=== PATIENT | female | born 1970 | race Caucasian/White ===

== ENCOUNTER 2020-12-09 14:22 | Outpatient (CLI) | payer SELFPAY ==
--- NOTE | 2020-12-09 14:32 | MM_ITS ---
WS: [id number] BILATERAL SCREENING DIGITAL MAMMOGRAM WITH CAD HISTORY: SCREENING COMPARISON: None available. Bilateral CC and MLO views submitted. Computer aided detection analyzed. Breast composition: The breasts are extremely dense, which lowers the sensitivity of mammography. No suspicious masses, microcalcifications or architectural distortion. Benign scattered calcifications. MM/[id number] IMPRESSION: BI-RADS: 2-Benign FOLLOW UP: 1 Year Follow-up
== END 2020-12-09 14:23 | disposition home or self-care (01) ==
LOC: RADSHAW 14:28
PROVIDERS: PCP Physician Assistant; Visit Provider Physician Assistant
DX: Z12.31 Encounter for screening mammogram for malignant neoplasm of breast (principal)
CPT/HCPCS: 77067

== ENCOUNTER → 2022-06-13 11:33 | Outpatient (BNVA) | payer SELFPAY | PROVIDERS: PCP Physician Assistant; Visit Provider Nurse Practitioner Women's Health | DX: N93.9 Abnormal uterine and vaginal bleeding, unspecified (principal) | CPT/HCPCS: 82670; 83001 ==

== ENCOUNTER 2024-03-27 09:51 | Outpatient (CLI) | payer OTHER, SELFPAY ==
--- NOTE | 2024-03-27 10:03 | MM_ITS ---
WS: [id number] BILATERAL 3D TOMOSYNTHESIS DIGITAL DIAGNOSTIC MAMMOGRAPHY WITH CAD CLINICAL INFORMATION: L BREAST TENDERNESS HISTORY: LEFT breast pain COMPARISON: 2020 TECHNIQUE: Bilateral CC, MLO, and ML views. FINDINGS: The breasts are composed of extremely dense tissue, which can limit the detection of small underlying mass lesions. Area of pain in the upper outer LEFT breast. Dense underlying parenchymal tissue in th is area. Ultrasound is pending. RIGHT breast appears unchanged. A few incidental punctate calcifications RIGHT breast. ULTRASOUND BREAST LEFT TECHNIQUE: Ultrasound left breast focused area of concern. CLINICAL INFORMATION: L BREAST TENDERNESS FINDINGS: Ultrasound LEFT breast upper outer quadrant in the area of pain. Dense underlying parenchymal tissue. No cystic or solid lesions. No suspicious lesions to target for biopsy. Recommend return to annual s creening mammography. MM/[id number] IMPRESSION: BI-RADS: 2-Benign FOLLOW UP: 1 Year Follow-up Recommend return to annual screening mammography.
== END 2024-03-27 09:52 | disposition home or self-care (01) ==
LOC: RAD 09:53
PROVIDERS: PCP Physician Assistant; Visit Provider Advanced Practice Midwife
DX: N64.4 Mastodynia (principal); N64.51 Induration of breast; R92.1 Mammographic calcification found on diagnostic imaging of breast; R92.30 Dense breasts, unspecified
CPT/HCPCS: 76642; 77062; G0279

== ENCOUNTER 2025-01-01 03:12 | Inpatient (IN) | payer SELFPAY ==
[2025-01-01] VITALS (24 sets, daily range): BP systolic 92–198; BP diastolic 60–115; PULSE 56–98; RESP 10–25; TEMP 36.4–36.9; O2SAT 89–100; BMI 22.6
--- NOTE | 2025-01-01 03:27 | ECG_ITS ---
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 Measurements Intervals [place] Rate: 59 P: 70 IN: 156 QRS: 51 QRSD: 86 T: -90 QT: 436 QTc: 433 Interpretive Statements SINUS BRADYCARDIA ST DEVIATION AND MODERATE T-WAVE ABNORMALITY, CONSIDER LATERAL ISCHEMIA [-0.1+ mV T-WAVE IN I/aVL/V5/V6] ST DEVIATION AND MODERATE T-WAVE ABNORMALITY, CONSIDER INFERIOR ISCHEMIA [-0.1+ mV T-WAVE IN II/aVF] No previous ECG available for comparison Electronically Signed On 01-06-2025 11:52:09 CDT by Steven Lawrence M.D. [id number] [id number]
--- NOTE | 2025-01-01 03:45 | XRR_ITS ---
PROCEDURE INFORMATION: Exam: XR Chest Exam date and time: 01/01/2025 4:04 AM Age: 54 years old Clinical indication: Pain; Chest pressure; Additional info: Chest pain TECHNIQUE: Imaging protocol: Radiologic exam of the chest. Views: 1 view. COMPARISON: No relevant prior studies available. FINDINGS: Lungs: Unremarkable. No consolidation. Pleural spaces: Unremarkable. No pleural effusion. No pneumothorax. Heart/Mediastinum: Unremarkable. No cardiomegaly. Bones/joints: Bilateral cervical ribs. XR/XR chest 1V portable [id number] IMPRESSION: No acute cardiopulmonary findings.
--- NOTE | 2025-01-01 04:01 | W.ED.CHESTPA ---
HPI - Chest Pain General: Chief Complaint: Chest Pain Stated Complaint: High BP Time Seen by Provider: 01/01/25 04:00 History of Present Illness: 54-year-old female with history of untreated hypertension who presents the emergency room with hypertension and chest discomfort. Said she had some central and right sided chest tightness. Went down her arm. Says she is improved now. She checked her blood pressure at home and it was elevated. On presentation here she is 192/76. No fevers. No cough. No lower extremity swelling. Related Data Home Medications ?Medication ?Instructions ?Recorded ?Confirmed B-complex with vitamin C 1 cap PO DAILY 06/13/22 06/13/22 bupropion HCl 150 mg tablet,12 hr 150 mg PO DAILY 06/13/22 06/13/22 sustained-release (Wellbutrin SR) cholecalciferol (vitamin D3) 10 10 mcg PO DAILY 06/13/22 06/13/22 mcg (400 unit) capsule ferrous sulfate 325 mg (65 mg 325 mg PO DAILY 06/13/22 06/13/22 iron) tablet,delayed release levothyroxine 125 mcg capsule 125 mcg PO DAILY 06/13/22 06/13/22 melatonin 3 mg capsule 3 mg PO DAILY 06/13/22 06/13/22 Allergies Allergy/AdvReac Type Severity Reaction Status Date / Time No Known Allergies Allergy Unverified 06/13/22 10:43 Review of Systems Narrative: Constitutional symptoms: Negative except as documented in HPI. Skin symptoms: Negative except as documented in HPI. Eye symptoms: Negative except as documented in HPI. ENMT symptoms: Negative except as documented in HPI. Respiratory symptoms: Negative except as documented in HPI. Cardiovascular symptoms: Negative except as documented in HPI. Gastrointestinal symptoms: Negative except as documented in HPI. Genitourinary symptoms: Negative except as documented in HPI. Musculoskeletal symptoms: Negative except as documented in HPI. Neurologic symptoms: Negative except as documented in HPI. Psychiatric symptoms: Negative except as documented in HPI. Endocrine symptoms: Negative except as documented in HPI. PFS ED PFSH: Medical History (Updated 01/01/25 @ 05:07 by Junie Blanco MD) No pertinent past medical history neghx: htn,dm,dvt/pe PCP: Qi Tamez Hypothyroid Surgical History (Updated 06/13/22 @ 11:13 by Rashida Reeves APN, MALIKA) Hx of lithotripsy (~2013) jennifer kidneys Family History Father Family history of thyroid problem Denies family history of Colon cancer Ovarian cancer Diabetes Heart disease Hyperlipidemia Breast cancer Hypertension Uterine cancer Stroke Physical Exam Narrative: EXAM NARRATIVE: General: Alert, no acute distress. Skin: Warm, dry. Head: Normocephalic, atraumatic. Neck: Supple, trachea midline. Eye: Extraocular movements are intact. Ears, nose, mouth and throat: mucosa moist. Cardiovascular: Regular, Normal peripheral perfusion. Respiratory: Lungs are clear to auscultation, respirations are non-labored, breath sounds are equal, Symmetrical chest wall expansion. Gastrointestinal: Soft, Nontender, Non distended Musculoskeletal: Normal ROM, no deformity. Neurological: Alert and oriented, No focal neurological deficit observed. Psychiatric: Cooperative, appropriate mood & affect. Course Vital Signs: Vital signs: Vital Signs Temperature 97.6 F 01/01/25 03:15 Pulse Rate 58 L 01/01/25 05:09 Respiratory Rate 16 01/01/25 05:09 Blood Pressure 198/110 01/01/25 05:09 Pulse Oximetry 99 01/01/25 05:09 Oxygen Delivery Me thod Room Air 01/01/25 05:09 MDM - Chest Pain Medical Decision Making Differential diagnosis for patient with chest pain includes but is not limited to and based on the above HPI, review of systems and physical exam: Pneumonia. unstable angina. angina. Acute coronary syndrome / [place]. Pulmonary embolism. Costochondritis / musculoskeletal. Pleurisy. Pericarditis. Esophageal spasm. Pancreatis. Cholecystitis. Orders placed to evaluate differential diagnosis based on the above differential, HPI and physical exam EKG: Time 3:27 AM. Rate 59. Sinus bradycardia. Fairly diffuse ST depression without any elevation, no ectopy, normal UT & QRS intervals, This was reviewed and interpreted by myself the ER physician at 3:35 AM. Lab Review: Laboratory results were reviewed and interpreted by myself the emergency room physician. No leukocytosis. No anemia. No renal failure. Initial troponin is slightly elevated at 26. Consultation: I spoke with Dr. Lawrence with cardiology. He recommends trending troponins. He reviewed EKG. He does not feel this is a STEMI. Chest x-ray: No acute process. No infiltrate. No pneumothorax. This was reviewed and interpreted by myself the emergency room physician. I also reviewed the radiology report. I reviewed the patient's medical record. Reexamination: Patient remained stable. No increased work of breathing. No altered mental status. No focal motor deficits. Patient has been chest pain-free while she has been here. Consultation: I spoke with Dr. Lora who is on-call for the hospitalist service who agrees to admission. Assessment and plan: Chest pain Elevated troponin EKG changes Accelerated hypertension ?Aspirin and hydralazine in the emergency room -I discussed the patient with the hospitalist on-call who is admitting the patient. - Discussed findings and plan with patient. Answered any questions. - All laboratory values were reviewed and interpreted personally by myself, the ER physician - All imaging was reviewed and interpreted personally by myself, the ER physician. - Evaluation and treatment of this problem were appropriate in the emergency setting Lab Data 01/01/25 04:00 01/01/25 04:00 Radiology Impressions Chest X-Ray 01/01/25 03:45 IMPRESSION: No acute cardiopulmonary findings. Laboratory Results WBC 7.34 10^3/uL (3.29-11.43) 01/01/25 04:00 RBC 4.28 10^6/uL (3.85-5.65) 01/01/25 04:00 Hgb 11.20 g/dL (11.27-16.99) L 01/01/25 04:00 Hct 36.8 % (36-47) 01/01/25 04:00 MCV 86.0 fl (85-98) 01/01/25 04:00 MCH 26.2 pg (27-33) L 01/01/25 04:00 MCHC 30.4 g/dL (30-55) 01/01/25 04:00 RDW 15.4 % (12.1-15.1) H 01/01/25 04:00 Plt Count 304 10^3/cmm (157-399) 01/01/25 04:00 MPV 8.5 fL (7.4-10.4) 01/01/25 04:00 Neut % (Auto) 66.8 % 01/01/25 04:00 Lymph % (Auto) 22.5 % 01/01/25 04:00 [place] % (Auto) 6.0 % 01/01/25 04:00 Eos % (Auto) 4.1 % 01/01/25 04:00 Baso % (Auto) 0.5 % 01/01/25 04:00 Neut # (Auto) 4.90 10^3/uL (1.8-7.7) 01/01/25 04:00 Lymph # (Auto) 1.7 10^3/uL (0.8-4.8) 01/01/25 04:00 [place] # (Auto) 0.4 10^3/uL (0.2-0.9) 01/01/25 04:00 Eos # (Auto) 0.3 10^3/uL (0.0-0.8) 01/01/25 04:00 Baso # (Auto) 0.0 10^3/uL (0.0-0.1) 01/01/25 04:00 Nucleated RBC % (auto) 0 % 01/01/25 04:00 Nucleated RBCs # 0.0 /100WBC 01/01/25 04:00 Sodium 143 mmol/L (136-145) 01/01/25 04:00 Potassium 4.0 mmol/L (3.5-5.1) 01/01/25 04:00 Chloride 107 mmol/L (98-107) 01/01/25 04:00 Carbon Dioxide 23 mmol/L (22-29) 01/01/25 04:00 Anion Gap 17.0 (5-19) 01/01/25 04:00 BUN 14 mg/dL (6-20) 01/01/25 04:00 Creatinine 0.9 mg/dL (0.5-0.9) 01/01/25 04:00 GFR Calculation 64.8 mL/min (90-130) L 01/01/25 04:00 Glucose 106 mg/dL (65-115) 01/01/25 04:00 Calculated Osmolality 297 mOsm/kg (285-295) H 01/01/25 04:00 Calcium 9.4 mg/dL (8.5-10.5) 01/01/25 04:00 Total Bilirubin 0.2 mg/dL (0.15-1.2) 01/01/25 04:00 AST 11 U/L (0-32) 01/01/25 04:00 ALT 6 U/L (0-33) 01/01/25 04:00 Alkaline Phosphatase 74 U/L (35-105) 01/01/25 04:00 Troponin T Baseline 26 ng/L (0-10) H 01/01/25 04:00 NT-Pro-B Natriuret Pep 153 pg/mL (0-125) H 01/01/25 04:00 Total Protein 7.3 g/dL (6.6-8.7) 01/01/25 04:00 Albumin 4.4 g/dL (3.5-5.2) 01/01/25 04:00 Globulin 2.9 g/dL (1.3-4.6) 01/01/25 04:00 All radiology interpretation(s) finalized by discharge Discharge Plan Discharge Patient Disposition: Admitted As Inpatient Clinical Impression: Non-ST elevated myocardial infarction, Chest pain, Accelerated hypertension Condition: Stable Coding Level of Care Code ED Gripper 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
[2025-01-01 04:04] LABS: Basophils % 0.5 %; Eosinophils # 0.3 10^3/uL (0.0-0.8); Eosinophils % 4.1 %; Hematocrit 36.8 % (36-47); Lymphocytes # 1.7 10^3/uL (0.8-4.8); Lymphocytes % 22.5 %; Mean Corpuscular HGB Conc 30.4 g/dL (30-55); Mean Corpuscular Hemoglobin 26.2 pg (27-33); Mean Platelet Volume 8.5 fL (7.4-10.4); Monocytes # 0.4 10^3/uL (0.2-0.9); Neutrophils % 66.8 %; Nucleated Red Blood Cells % 0 %; Platelet Count 304 10^3/cmm (157-399); Red Blood Count 4.28 10^6/uL (3.85-5.65); Red Cell Distribution Width 15.4 % (12.1-15.1); White Blood Count 7.34 10^3/uL (3.29-11.43)
[2025-01-01] MEDS: aspirin 81 mg Chew Tablet 324 MG PO (04:18)
[2025-01-01 04:21] LABS: Alanine Aminotransferase 6 U/L (0-33); Albumin Level 4.4 g/dL (3.5-5.2); Alkaline Phosphatase 74 U/L (35-105); Aspartate Amino Transferase 11 U/L (0-32); Chloride 107 mmol/L (98-107); Glucose 106 mg/dL (65-115); Sodium 143 mmol/L (136-145)
[2025-01-01 04:23] LABS: Troponin(5th) Baseline 26 ng/L (0-10)
[2025-01-01 04:46] LABS: Blood Urea Nitrogen 14 mg/dL (6-20); Calcium 9.4 mg/dL (8.5-10.5); Carbon Dioxide 23 mmol/L (22-29); Creatinine Clr Calc Pharmacy 62.5517; Globulin 2.9 g/dL (1.3-4.6); Glomerular Filtration Rate 64.8 mL/min (90-130); NT Pro B Type Natriuretic Pept 153 pg/mL (0-125); Osmolality Calculated 297 mOsm/kg (285-295); Total Bilirubin 0.2 mg/dL (0.15-1.2); Total Protein 7.3 g/dL (6.6-8.7)
--- NOTE | 2025-01-01 05:34 | PM.HP ---
Providers/Chief Complaint Admitting Physician: Isak Lora MD Primary Care Provider: Qi Tamez Chief Complaint: High BP History of Present Illness Simin Donahue is a 54 year old female in good health but with hypertension diagnosed at age 18. She states she was on medicines but then started running with her son who was doing cross-country. Patient began to do half marathons at times but 5K runs frequently. Her blood pressure improved and she got off medications. She states that in the last 3 years she stopped running in the last 2 years she is going through a stressful divorce. 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 Today she had chest tightness and right shoulder pain as well as some leg pain but has associated restless legs. She states that she had tingling into her fingers Dad 79 with musculoskeletal injuries Mom 78 okay Maternal grandma had heart stents in her 60s or 70s Review of Systems Narrative: General no fevers chills night sweats hot flashes. Gained 15 pounds in the last 1 year Cardiovascular heart rate tends to run 60s she has had blood pressures from 130 systolic to 170 untreated for many years Respiratory no shortness of breath, she does have coughing with allergies and sinus drainage all the time GI no nausea vomiting diarrhea she does have constipation no dysuria hematuria Neuro no seizures strokes limb weakness hematologic no history of blood clots Malignancy history negative Medications/Allergies Home Medications ?Medication ?Instructions ?Recorded ?Confirmed ?Last Taken ?Type B-complex with vitamin C 1 cap PO DAILY 06/13/22 06/13/22 Unknown History bupropion HCl 150 mg tablet,12 hr 150 mg PO DAILY 06/13/22 06/13/22 Unknown History sustained-release (Wellbutrin SR) cholecalciferol (vitamin D3) 10 10 mcg PO DAILY 06/13/22 06/13/22 Unknown History mcg (400 unit) capsule ferrous sulfate 325 mg (65 mg 325 mg PO DAILY 06/13/22 06/13/22 Unknown History iron) tablet,delayed release levothyroxine 125 mcg capsule 125 mcg PO DAILY 06/13/22 06/13/22 Unknown History melatonin 3 mg capsule 3 mg PO DAILY 06/13/22 06/13/22 Unknown History Allergies Allergy/AdvReac Type Severity Reaction Status Date / Time No Known Allergies Allergy Unverified 06/13/22 10:43 PFSH Acute PFSH: Medical History (Updated 01/01/25 @ 05:07 by Junie Blanco MD) No pertinent past medical history neghx: htn,dm,dvt/pe PCP: Qi Tamez Hypothyroid Surgical History (Updated 06/13/22 @ 11:13 by Rashida Reeves APN, MALIKA) Hx of lithotripsy (~2013) jennifer kidneys Family History Father Family history of thyroid problem Denies family history of Colon cancer Ovarian cancer Diabetes Heart disease Hyperlipidemia Breast cancer Hypertension Uterine cancer Stroke Social History (Updated 01/01/25 @ 05:47 by Isak Lora MD) Smoking and tobacco/nicotine status: never used tobacco/nicotine Alcohol intake: current Alcohol intake frequency: few times a month Substance/Drug Use: never 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 Vitals/I&O/Wt Last Vital Signs Temp 97.6 F 01/01/25 03:15 Pulse 58 L 01/01/25 05:09 Resp 16 01/01/25 05:09 BP 198/110 01/01/25 05:09 Pulse Ox 99 01/01/25 05:09 O2 Del Method Room Air 01/01/25 05:09 12/31/24 12/31/24 01/01/25 14:59 22:59 06:59 Intake Total 0 / 0 Balance 0 / 0 Weight last 48 hrs Weight 59.874 kg Physical Exam Narrative: General Well-developed slender tall female in no acute cardiopulmonary distress Neck no bruits CV regular rate and rhythm Lungs clear to auscultation bilaterally Abdomen positive bowel sounds soft nontender Calves no tenderness cords pretrip edema Mentation alert and orient x 3 Skin warm and dry Data 01/01/25 04:00 01/01/25 04:00 A&P Assessment and plan (1) Non-ST elevated myocardial infarction: Patient is having possibly demand ischemia versus ischemic coronary artery disease with troponin 26. She is at baseline borderline bradycardic but has a long history of running though she stopped 3 years ago. Will treat blood pressure with losartan and hydralazine. Repeat cardiac enzymes and if rising will have angiogram with Dr. Lawrence. If not rising we will proceed with stress test. Echocardiogram will be ordered (2) Accelerated hypertension: As above patient has not been treating her blood pressure but has quit exercising and blood pressure has become higher as a result we will check lipid panel in the morning (3) Chest pain: Anticipate stress test or angiogram for NSTEMI with inferolateral ischemia seen on EKG PDMP PDMP Reviewed: Not Reviewed Attestations Medical Necessity Statement*: Patient will be admitted to hospital for 2 midnights. Coding Level of Care Code 68291 Diagnoses Non-ST elevated myocardial infarction I21.4 Accelerated hypertension I10 Chest pain R07.9 Time Spent (min) 55
--- NOTE | 2025-01-01 05:41 | ECG_ITS ---
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: : 1970 Requested By: Junie Thomson Order Number: [id number] Berta MD: EMERALD MADRIGAL Measurements Intervals [place] Rate: 57 P: 68 MA: 151 QRS: 23 QRSD: 86 T: -39 QT: 440 QTc: 431 Interpretive Statements SINUS BRADYCARDIA SEPTAL MYOCARDIAL INFARCTION , PROBABLY OLD [40+ ms Q WAVE IN V1/V2] MODERATE T-WAVE ABNORMALITY, CONSIDER LATERAL ISCHEMIA [-0.1+ mV T-WAVE IN I/aVL/V5/V6] MODERATE T-WAVE ABNORMALITY, CONSIDER INFERIOR ISCHEMIA [-0.1+ mV T-WAVE IN II/aVF] Compared to ECG 01/01/2025 03:27:27 Myocardial infarct finding now present T-wave abnormality still present Possible ischemia still present Electronically Signed On 01-07-2025 22:57:31 CDT by EMERALD MADRIGAL [id number] [id number]
[2025-01-01] MEDS: amlodipine 5 mg Tablet 2.5 MG PO (06:14)
[2025-01-01] MEDS: hyDRALAzine 20 mg/mL INJ 1 mL IVP (06:15)
[2025-01-01] MEDS: losartan 50 mg Tablet 25 MG PO (06:15)
[2025-01-01 06:36] LABS: Troponin 5 2HR 146.2 ng/L (0-10); Troponin 5 2HR Delta 120.2 ABS# (0-10)
[2025-01-01] MEDS: atorvastatin 40 mg Tablet 80 MG PO (07:33)
[2025-01-01] MEDS: heparin drip 25,000 UNIT/500 ML PREMIX 17 UNIT IV (07:36)
[2025-01-01 07:44] LABS: Partial Thromboplastin Time 28.6 SECONDS (23.9-36.7)
[2025-01-01] MEDS: b-complex-vitamin c Tablet 1 EACH PO (09:04)
[2025-01-01] MEDS: ferrous sulfate EC 325 mg Tablet PO (09:04)
[2025-01-01] MEDS: buPROPion SR (12 HR) 150 mg Tablet PO (09:04)
--- NOTE | 2025-01-01 09:27 | USCV_ITS ---
Simin Donahue Age: 54 Gender: F : 1970 Exam Date: 01/01/2025 18:40 Ordering Phys: Justin Sylvester MD Technologist: MARLEN Exam Location: [facility] [place] Indication: nstemi s/p cardiac cath BP: 105 / 72 HR: 57 Rhythm: Sinus Technical Quality: Good MEASUREMENTS (Male / Female) Normal Values 2D ECHO LV Diastolic Diameter PLAX 4.0 cm 4.2 - 5.9 / 3.9 - 5.3 cm IVS Diastolic Thickness 1.5 cm 0.6 - 1.0 / 0.6 - 0.9 cm IVS Systolic Thickness 1.8 cm LVPW Diastolic Thickness 1.4 cm 0.6 - 1.0 / 0.6 - 0.9 cm LVPW Systolic Thickness 1.8 cm LVOT Diameter 2.0 cm LV Ejection Fraction 2D Teich 57.1 % LV Ejection Fraction MOD 4C 64.5 % LV Ejection Fraction MOD 2C 64.7 % LV Ejection Fraction 2C AL 67.3 % LA Diameter 2.9 cm Aorta at Sinotubular Diameter 2.8 cm IVC Diameter 1.1 cm M-MODE LA Ao Ratio MM 1.0 AV Cusp Separation MM 1.7 cm DOPPLER AV Peak Velocity 118.0 cm/s LVOT Peak Velocity 74.0 cm/s AV Area Cont Eq vti 1.7 cm squared AV Area Cont Eq pk 1.9 cm squared MV Peak Velocity 93.0 cm/s MV Area PHT 3.4 cm squared Mitral E to A Ratio 1.1 TR Peak Velocity 223.0 cm/s TR Peak Gradient 19.9 mmHg TV Peak E Velocity 46.0 cm/s PV Peak Velocity 70.0 cm/s FINDINGS Left Ventricle Left ventricle is normal in size. LV systolic function is normal with EF of 60-65%. Mild to moderate left ventricular hypertrophy. Grade 2 diastolic dysfunction Right Ventricle Normal in size and function Right Atrium Normal in size Left Atrium Normal in size Mitral Valve Structurally normal mitral valve. Mild mitral regurgitation Aortic Valve Structurally normal aortic valve. No significant stenosis or regurgitation. Tricuspid Valve Insufficient TR jet to calculate RVSP. Pulmonic Valve Trace pulmonic regurgitation. Pericardium Normal Aorta Normal in size IVC Appears to be normal CONCLUSIONS LV systolic function is normal with EF of 60-65% Mild to moderate left ventricular hypertrophy. Grade 2 diastolic dysfunction. Mild mitral regurgitation. Trace pulmonic regurgitation. No comparison studies are available Steven Lawrence MD (Electronically Signed) Final Date: 02 Jan 2025 09:02 S
--- NOTE | 2025-01-01 09:45 | ECG_ITS ---
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: : 1970 Requested By: Junie Thomson Order Number: [id number] Berta MD: EMERALD MADRIGAL Measurements Intervals [place] Rate: 91 P: 65 UT: 150 QRS: 23 QRSD: 82 T: -81 QT: 366 QTc: 450 Interpretive Statements SINUS RHYTHM SEPTAL MYOCARDIAL INFARCTION , PROBABLY OLD [40+ ms Q WAVE IN V1/V2] MODERATE T-WAVE ABNORMALITY, CONSIDER ANTEROLATERAL ISCHEMIA [-0.1+ mV T-WAVE IN V3-V6] MODERATE T-WAVE ABNORMALITY, CONSIDER INFERIOR ISCHEMIA [-0.1+ mV T-WAVE IN II/aVF] Compared to ECG 01/01/2025 05:41:26 Sinus bradycardia no longer present Myocardial infarct finding still present T-wave abnormality still present Possible ischemia still present Electronically Signed On 01-07-2025 22:57:33 CDT by EMERALD MADRIGAL [id number]
[2025-01-01 10:06] LABS: Estmated Average Glucose 105; Hemoglobin A1C 5.3 % (4.0-6.0)
[2025-01-01 10:09] LABS: Free T4 Free Thyroxine 1.18 ng/dL (0.82-1.77); Procalcitonin 0.05 ng/mL (0-0.5); T3 Free 2.1 PG/ML (2.0-4.4)
--- NOTE | 2025-01-01 10:15 | P.CONIM_ITS ---
<Statement entered by Steven Lawrence M.D - 01/03/25 13:38> Patient was evaluated and cared for in conjunction with an advanced practice practitioner.? I personally examined the patient and reviewed the chart and all pertinent data including imaging, telemetry, and laboratory results.? I discussed the patient in detail with the advanced practice practitioner.? Please see? their note for complete consult note, testing results and agreed upon plan of care for the patient. Patient has presented with NSTEMI and uncontrolled hypertension. plan for coronary angigoram with possible PCI. Risks and benefits discussed. ECHO ordered GENERAL: Patient is alert, awake and oriented x3. HEART: Regular S1 and S2 LUNGS: Clear to auscultate bilaterally. CENTRAL NERVOUS SYSTEM: Grossly nonfocal. EXTREMITIES: Lower extremities without edema bilaterally. Providers/Reason For Consult 2 Consulting Physician/Specialty*: Dr Lawrence, cardiology Reason for Consult*: NSTEMI, chest pain Requesting Physician: Justin Sylvester MD Attending Physician: Justin Sylvester MD Primary Care Provider: Qi Tamez History of Present Illness History of Present Illness Simin Donahue is a 54 year old female with past medical history of hypertension, previously on metoprolol which caused some weight gain. Blood pressure improved for a time and she discontinued the medication. Blood pressure has been high lately, she woke up with chest pain early this morning around 4 AM, took her blood pressure and noted it was very high cannot remember the number. The chest pain felt like heaviness in the center of the chest and radiated to the right shoulder and arm. After she arrived at the emergency room she did have vomiting. No shortness of breath, edema, rapid increase in weight, has been fatigued lately but thought that might be a menopausal change. She does not have any previous cardiac history. No previous testing. Troponin series: 26-> 146-> 131. BNP 153. TSH 15- she is on levothyroxine at home 88 mcg daily. EKG shows ST depression with T wave inversion in the inferior and lateral leads, sinus rhythm. Echocardiogram ordered not completed. Review of Systems 2 Const: Denies: fever(s), chills, change in weight, fatigue or diaphoresis Eyes: Denies: change in vision ENMT: Denies: epistaxis Card: Reports: chest pain; Denies: palpitations, irregular heart rhythm, edema, syncope, pre-syncope, dyspnea on exertion, orthopnea or leg pain with exertion Resp: Denies: dyspnea, productive cough or wheezing GI: Denies: nausea, vomiting, hematemesis, hematochezia or melena : Denies: hematuria Musc: Denies: extremity swelling Zak/Lymph: Denies: easy bruising or easy bleeding Medications/Allergies Home Medications ?Medication ?Instructions ?Recorded ?Confirmed ?Last Taken ?Type B-complex with vitamin C 1 cap PO DAILY 06/13/2212/0512/31/24 History bupropion HCl 150 mg tablet,12 hr 150 mg PO DAILY 03/2701/01/25 1 Week Ago History sustained-release (Wellbutrin SR) ~ cholecalciferol (vitamin D3) 10 10 mcg PO DAILY 01/01/25 12/31/24 History mcg (400 unit) capsule melatonin 3 mg capsule 3 mg PO BEDTIME PRN Sleep 01/01/25 Unknown History levothyroxine 88 mcg tablet 88 mcg PO QPM 01/01/2512/31/24 History Allergies Allergy/AdvReac Type Severity Reaction Status Date / Time No Known Allergies Allergy Unverified 06/13/22 10:43 Current Medications Generic Name Dose Route Start Last Admin Trade Name Sandeepq PRN Reason Stop Dose Admin Acetaminophen 650 mg 01/01/25 09:27 01/01/25 10:45 Acetaminophen 325 Mg Tablet PO 650 mg Q6H PRN Administration Mild/Mod Pain Or Temp >/= 101 Bupropion HCl 150 mg 01/01/25 09:00 01/01/25 09:04 Bupropion Sr (12 Hr) 150 Mg Tablet PO 150 mg DAILY GERALDO Administration Ferrous Sulfate 325 mg 01/01/25 09:00 01/01/25 09:04 Ferrous Sulfate Ec 325 Mg Tablet PO 325 mg DAILY GERALDO Administration Heparin Sodium/Sodium Chloride 25,000 unit in 500 mls @ 0 mls/hr 01/01/25 07:15 01/01/25 07:36 Heparin Drip IV 14.2 unit/kg/hr CONT GERALDO 17 mls/hr Protocol Administration Per Protocol Levothyroxine Sodium 125 mcg 01/01/25 09:00 01/01/25 09:06 Levothyroxine 125 Mcg Tablet PO Not Given DAILY GERALDO Losartan Potassium 25 mg 01/01/25 05:10 01/01/25 06:15 Losartan 50 Mg Tablet PO 25 mg DAILY GERALDO Administration Metoprolol Tartrate 25 mg 01/01/25 11:40 01/01/25 12:01 Metoprolol Tartrate 25 Mg Tablet PO 25 mg BID@0900,2100 GERALDO Administration Multivitamins 1 each 01/01/25 09:00 01/01/25 09:04 A-Hfaospt-Ttkmaxf C Tablet PO 1 each DAILY GERALDO Administration Pantoprazole Sodium 40 mg 01/01/25 09:30 01/01/25 10:46 Pantoprazole 40 Mg Sdv IVP 40 mg Q24H GERALDO Administration PFSH Acute 2 PFSH: Medical History No pertinent past medical history neghx: htn,dm,dvt/pe PCP: Qi Tamez Hypothyroid Surgical History Hx of lithotripsy (~2013) jennifer kidneys Family History Father Family history of thyroid problem Denies family history of Colon cancer Ovarian cancer Diabetes Heart disease Hyperlipidemia Breast cancer Hypertension Uterine cancer Stroke Social History Smoking and tobacco/nicotine status: never used tobacco/nicotine Alcohol intake: current Alcohol intake frequency: few times a month Substance/Drug Use: never 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 Vitals/I&O/Wt Last Vital Signs Temp 97.6 F 01/01/25 03:15 Pulse 90 01/01/25 11:03 Resp 15 01/01/25 11:03 BP 134/89 01/01/25 11:03 Pulse Ox 97 01/01/25 11:03 O2 Del Method Room Air 01/01/25 08:56 12/31/24 01/01/25 01/01/25 22:59 06:59 14:59 Intake Total 0 / 0 Balance 0 / 0 Weight last 48 hrs Weight 132 lb Physical Exam 2 Const: COMMON NORMALS: no acute distress and patient oriented x3 GENERAL APPEARANCE: cooperative and comfortable ORIENTATION/CONSCIOUSNESS: Yes awake, Yes oriented to person, Yes oriented to place and Yes oriented to time Chest: COMMONS NORMALS: normal inspection of the chest and normal palpation of entire chest wall CHEST: Yes Symmetrical chest wall rise Resp: COMMON NORMALS: normal respiratory effort, No retractions, No use of accessory muscles and clear to auscultation bilaterally EFFORT & INSPECTION: Yes symmetric chest movement AUSCULTATION: clear to auscultation bilaterally Cardio: COMMON NORMALS: regular rate, regular rhythm, S1 normal heart sound present, S2 normal heart sound present, No gallops present (Cardio), No clicks present (Cardio), No murmurs present (Cardio) and No rub (Cardio) RATE: r egular rate RHYTHM: regular rhythm HEART SOUNDS: S1 normal heart sound present and S2 normal heart sound present PERIPHERAL PULSES: radial pulses present Extremity: COMMON NORMALS: no pedal edema Neuro: COMMON NORMALS: patient oriented x3 and moves all extremities S ENSORIUM/ORIENTATION: Yes oriented to person, Yes oriented to place and Yes oriented to time Data 01/01/25 04:00 01/01/25 04:00 A&P Assessment and plan (1) Non-ST elevated myocardial infarction: (2) Chest pain: (3) Accelerated hypertension: Plan Plan for coronary angiogram today, due to NSTEMI. Continue heparin infusion. Risk and benefits of coronary angiogram discussed with the patient including bleeding and contrast-induced nephropathy, she is in agreement to proceed. Further plan will be devised based on results of imaging. PDMP PDMP Reviewed: Not Reviewed Consult Attestations 2 Medical Necessity Statement: Ischemic workup, NSTEMI Coding Level of Care Code Acute Code for [facility] Diagnoses Non-ST elevated myocardial infarction I21.4 Chest pain R07.9 Accelerated hypertension I10
[2025-01-01 10:38] LABS: Iron 24 ug/dL (37-145); Percent Saturation 6.5 % (20-50); Total Iron Binding Capacity 368 mcg/dl; Unsaturated Iron Binding 344 ug/dL (112-347)
[2025-01-01] MEDS: acetaminophen 325 mg Tablet 650 MG PO ×2 (10:45→17:04)
[2025-01-01] MEDS: pantoprazole 40 mg SDV IVP (10:46)
[2025-01-01 10:54] LABS: Vitamin B12 905 pg/mL (232-1245)
[2025-01-01 10:59] LABS: Troponin 5 6HR 131.9 ng/L (0-10); Troponin 5 6HR Delta 105.9 ng/L (0-12)
--- NOTE | 2025-01-01 11:35 | P.PN_ITS ---
Subjective 2 Subjective: Admitted earlier today morning. Continues to have occasional chest pain. Laying comfortably in bed otherwise. Appreciate vitals. Remains on room air. Seen with family at bedside in CSU. Vitals/I&O/Wt Last Vital Signs Temp 97.6 F 01/01/25 03:15 Pulse 90 01/01/25 11:03 Resp 15 01/01/25 11:03 BP 134/89 01/01/25 11:03 Pulse Ox 97 01/01/25 11:03 O2 Del Method Room Air 01/01/25 08:56 12/31/24 01/01/25 01/01/25 22:59 06:59 14:59 Intake Total 0 / 0 Balance 0 / 0 Weight last 48 hrs Weight 59.874 kg Physical Exam 2 Narrative: General: No acute distress, AO x3 HEENT: PERRLA, pupils bilaterally equal and reactive Chest: Normal vesicular breath sounds, no added sounds, equal good air entry bilaterally CVS: S1-S2 regular, no murmurs, no tachycardia, no gallops, no rubs Abdomen: Soft, nontender, no organomegaly, bowel sounds present Neuro: No focal deficits, no facial deformity, AO x3, power 5/5 in all limbs Data 01/01/25 04:00 01/01/25 04:00 A&P Assessment and plan (1) Non-ST elevated myocardial infarction: Check echocardiogram. Continues to have occasional chest pain. Troponin cycle appreciated. Delta of 120 Continue with heparin drip. Aspirin 81 mg daily, statin 20 mg nightly. Check A1c, lipid panel. Add metoprolol 25 mg twice daily Check urine drug screen. (2) Accelerated hypertension: Goal blood pressure less than 140/90 mmHg. For now continue with metoprolol as above. Added losartan overnight. Uptitrate as per goal blood pressure. (3) Chest pain: Plan Full code. N.p.o. for now. Heparin drip will be sufficient for DVT prophylaxis Protonix for PUD prophylaxis PDMP PDMP Reviewed: Not Reviewed Attestations 2 Medical Necessity Statement*: Requires further hospitalization for management of non-ST elevation KS with active chest pain requiring further cardiac workup with possible angiogram Other Coding Information Prolonged care (total time indicated above or notated here) Managing heparin drip, ordering labs. Discussing cardiac angiogram with family and patient. Diagnoses Non-ST elevated myocardial infarction I21.4 Accelerated hypertension I10 Chest pain R07.9
[2025-01-01] MEDS: metoprolol tartrate 25 mg Tablet PO ×2 (12:01→20:14)
--- NOTE | 2025-01-01 12:07 | PC.NURSE ---
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
--- NOTE | 2025-01-01 12:10 | W.PM.OPSUD ---
Surgery/Procedure H&P Update DATE OF PROCEDURE: January 01, 2025 DATE H&P PERFORMED: 01/01/25 H&P UPDATE INFORMATION: I have reviewed H&P completed within last 30 days, I have examined patient prior to procedure and No changes to prior documentation PREOP DIAGNOSIS: NSTEMI PRIMARY INDICATION FOR PROCEDURE: NSTEMI PLANNED PROCEDURE: Left heart cath with possible percutaneous coronary intervention PATIENT REASSESSED PRIOR TO SEDATION, WITH NO CHANGE NOTED: Yes PHYSICAL EXAM: alert, oriented x 3, clear to auscultation bilaterally and regular rate & rhythm AIRWAY EVAL/ANESTHESIA PLAN: normal airway, ASA III, Local Anesthesia, Risks, benefits & alternatives of sedation and/or procedure discussed and Patient agrees to continue as planned ADDITIONAL INFORMATION: Moderate sedation
[2025-01-01 13:32] LABS: Creatine Phosphokinase 74 U/L (26-192)
--- NOTE | 2025-01-01 17:14 | PC.NURSE ---
Patient is c/o severe headache causing vision problems. She says she has this sometimes just not this bad. She is calling it her migraine aura . Informed Dr Sylvester and received telephone orders for head CT w/o contrast and tramadol as ordered.
[2025-01-01] MEDS: atorvastatin 40 mg Tablet 20 MG PO (20:14)
[2025-01-01] MEDS: MELATONIN 3 MG TABLET PO (20:15)
--- NOTE | 2025-01-01 22:44 | PC.NURSE ---
TR band taken off around 1015. Hemostasis achieved no signs of hematoma. Site is soft with no swelling. Dressing applied and patient educated on restrictions for wrist along with signs to report to nurse.
[2025-01-02] VITALS (10 sets, daily range): BP systolic 115–186; BP diastolic 68–100; PULSE 60–67; RESP 6–28; TEMP 36.7–36.9; O2SAT 94–97
[2025-01-02 00:05] LABS: Add Urine Microscopic? YES; Bacteria Urine 1+ /hpf; Bilirubin Urine Negative (Negative); Blood Urine Negative (Negative); Glucose Urine UA Negative (Normal); Hyaline Casts Urine 0-4 /lpf; Ketones Urine Trace (Negative); Leukocyte Esterase Urine Negative (Negative); Nitrate Urine Negative (Negative); Protein Urine Trace (Negative); Squamous Epithelial Cell Urine 0-5 /hpf (0-5); Urine Appearance Clear (CLEAR); Urine Color Yellow (Yellow)
[2025-01-02 00:06] LABS: Amphetamines Screen Urine Negative (Negative); Barbiturates Screen Urine Negative (Negative); Benzodiazepines Screen Urine Negative (Negative); Cocaine Screen Urine Negative (Negative); Opiate Screen Urine Negative (Negative); PCP Screen Urine Negative (Negative); THC Screen Urine Negative (Negative)
[2025-01-02 00:12] LABS: Urine Creatinine 237 mg/dL (28-217)
[2025-01-02 00:20] LABS: UA Slide Review UA Slide Review Perf
[2025-01-02 03:16] LABS: Basophils # 0.1 10^3/uL (0.0-0.1); Basophils % 0.8 %; Eosinophils # 0.3 10^3/uL (0.0-0.8); Eosinophils % 3.9 %; Hematocrit 34.5 % (36-47); Lymphocytes # 1.6 10^3/uL (0.8-4.8); Mean Corpuscular Hemoglobin 26.7 pg (27-33); Mean Platelet Volume 8.5 fL (7.4-10.4); Monocytes # 0.5 10^3/uL (0.2-0.9); Monocytes % 7.2 %; Neutrophils # 4.04 10^3/uL (1.8-7.7); Neutrophils % 62.9 %; Nucleated Red Blood Cells % 0 %; Platelet Count 297 10^3/cmm (157-399); Red Blood Count 4.01 10^6/uL (3.85-5.65); Red Cell Distribution Width 15.5 % (12.1-15.1); White Blood Count 6.41 10^3/uL (3.29-11.43)
[2025-01-02 03:37] LABS: Alanine Aminotransferase 7 U/L (0-33); Albumin Level 3.8 g/dL (3.5-5.2); Alkaline Phosphatase 67 U/L (35-105); Aspartate Amino Transferase 11 U/L (0-32); Blood Urea Nitrogen 16 mg/dL (6-20); Calcium 9.5 mg/dL (8.5-10.5); Carbon Dioxide 23 mmol/L (22-29); Chloride 110 mmol/L (98-107); Creatinine Clr Calc Pharmacy 56.2965; Globulin 3.1 g/dL (1.3-4.6); Glomerular Filtration Rate 57.4 mL/min (90-130); Glucose 99 mg/dL (65-115); Magnesium 2.1 mg/dL (1.7-2.3); Osmolality Calculated 297 mOsm/kg (285-295); Phosphorus 4.7 mg/dL (2.5-4.5); Sodium 143 mmol/L (136-145); Total Bilirubin 0.2 mg/dL (0.15-1.2); Total Protein 6.9 g/dL (6.6-8.7)
[2025-01-02 03:39] LABS: Chol HDL Ratio 3.21 mg/dL (0.0-4.40); Cholesterol 228 mg/dL (0-200); HDL Cholesterol 71 mg/dL (60-100); LDL Cholesterol Calculated 134 mg/dL (50-129); LDL HDL Ratio 1.89 RATIO (0.00-3.22); Triglycerides 115 mg/dL (0-150)
[2025-01-02 03:43] LABS: Procalcitonin 0.04 ng/mL (0-0.5)
[2025-01-02 05:30] LABS: Folate Level 10.7 ng/mL (4.8-37.3)
--- NOTE | 2025-01-02 07:12 | PC.NURSE ---
Patient c/o agitation and extreme restless this morning. Informed Dr Lawrence and received telephone order for onetime dose of Xanax 0.25mg PO.
[2025-01-02] MEDS: ferrous sulfate EC 325 mg Tablet PO (07:24)
[2025-01-02] MEDS: ALPRAZolam 0.5 mg Tablet 0.25 MG PO ×2 (07:24→10:02)
[2025-01-02] MEDS: buPROPion SR (12 HR) 150 mg Tablet PO (07:24)
[2025-01-02] MEDS: b-complex-vitamin c Tablet 1 EACH PO (07:24)
[2025-01-02] MEDS: aspirin 81 mg EC Tablet PO (07:24)
[2025-01-02] MEDS: losartan 50 mg Tablet 25 MG PO (07:25)
[2025-01-02] MEDS: levothyroxine 125 mcg Tablet PO (07:26)
[2025-01-02] MEDS: pantoprazole 40 mg SDV IVP (07:27)
[2025-01-02] MEDS: metoprolol tartrate 25 mg Tablet PO (07:28)
--- NOTE | 2025-01-02 07:39 | PC.NURSE ---
Patient is very restless and agitated this morning. Wants to go home. I got a onetime order from Dr Lawrence for xanax 0.25mg PO. Her BP is elavated this morning. AM meds have been given. Informed Dr Sylvester.
--- NOTE | 2025-01-02 08:23 | P.DS_ITS ---
Discharge Providers Date of Admission: 01/01/25 05:28 Date of Discharge: January 02, 2025 Attending Provider at Admission: Isak Lora MD Attending Provider at Discharge: Justin Sylvester MD Consults: Cardiology: Dr. Lawrence Primary Care Provider: Qi Tamez Diagnoses at Discharge Discharge Diagnosis (1) Non-ST elevated myocardial infarction: Status: Acute (2) Chest pain: Status: Acute (3) Accelerated hypertension: Status: Acute Reason for Visit Reason for Visit: High BP Brief History: Simin Donahue is a 54 year old female in good health but with hypertension diagnosed at age 18. She states she was on medicines but then started running with her son who was doing cross-country. Patient began to do half marathons at times but 5K runs frequently. Her blood pressure improved and she got off medications. She states that in the last 3 years she stopped running in the last 2 years she is going through a stressful divorce. 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 Today she had chest tightness and right shoulder pain as well as some leg pain but has associated restless legs. She st ates that she had tingling into her fingers. Dad 79 with musculoskeletal injuries Mom 78 okay Maternal grandma had heart stents in her 60s or 70s Hospital Course Hospital Course Patient was admitted to the hospital further evaluation and management of chest pain with concerns for non-ST elevation MA because of delta troponins. During hospitalization she was found to have elevated blood pressures and severe anxiety. Her antihypertensives were adjusted. 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 It is believed her chest pain and elevated troponin is most likely in setting of type II MA from elevated blood pressures. Echocardiogram was done which showed a normal EF with mild to moderate LVH and grade 2 diastolic dysfunction. During hospitalization she underwent CT head which was consistent with a chronic basilar infarct. Her antihypertensives were adjusted. Patient was counseled in detail about medication changes and lifestyle modifications. She has been discharged in hemodynamically stable condition on oral metoprolol 25 mg twice daily and losartan 50 mg daily along with aspirin and statin. She is also given amlodipine 5 mg daily as needed for a systolic blood pressure of more than 150 mmHg. She is been discharged hemodynamically stable condition advised to follow-up with a primary care provider within next 2 weeks with her blood pressure diary for further adjustment of antihypertensives and with cardiology team in 2 weeks as well. Physical Exam Narrative: General: No acute distress, AO x3 HEENT: PERRLA, pupils bilaterally equal and reactive Chest: Normal vesicular breath sounds, no added sounds, equal good air entry bilaterally CVS: S1-S2 regular, no murmurs, no tachycardia, no gallops, no rubs Abdomen: Soft, nontender, no organomegaly, bowel sounds present Neuro: No focal deficits, no facial deformity, AO x3, power 5/5 in all limbs Discharge Data Studies Completed and Pending Completed Studies During Hospitalization Category Date Time Status XR chest 1V portable [id number] Stat Exams 01/01/25 03:45 Completed Pending at discharge Category Date Time Status CT head wo con* [id number] Routine Cat Scan 01/02/25 17:10 Taken 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 echo complete* [id number] Routine Ultrasound 01/01/25 09:27 Taken Radiology Impressions Chest X-Ray 01/01/25 03:45 IMPRESSION: No acute cardiopulmonary findings. Echocardiogram: CONCLUSIONS LV systolic function is normal with EF of 60-65% Mild to moderate left ventricular hypertrophy. Grade 2 diastolic dysfunction. Mild mitral regurgitation. Trace pulmonic regurgitation. No comparison studies are available Steven Lawrence MD (Electronically Signed) Final Date: 02 Jan 2025 09:02 CT head: CT/CT head wo con* [id number] IMPRESSION: Indeterminate hemispheric white matter disease, chronic basal ganglia infarct. Please correlate clinically, suggest MRI of the brain with and without contrast to further assess. Laboratory Results WBC 6.41 10^3/uL (3.29-11.43) 01/02/25 02:58 RBC 4.01 10^6/uL (3.85-5.65) 01/02/25 02:58 Hgb 10.70 g/dL (11.27-16.99) L 01/02/25 02:58 Hct 34.5 % (36-47) L 01/02/25 02:58 MCV 86.0 fl (85-98) 01/02/25 02:58 MCH 26.7 pg (27-33) L 01/02/25 02:58 MCHC 31.0 g/dL (30-55) 01/02/25 02:58 RDW 15.5 % (12.1-15.1) H 01/02/25 02:58 Plt Count 297 10^3/cmm (157-399) 01/02/25 02:58 MPV 8.5 fL (7.4-10.4) 01/02/25 02:58 Neut % (Auto) 62.9 % 01/02/25 02:58 Lymph % (Auto) 25.0 % 01/02/25 02:58 [place] % (Auto) 7.2 % 01/02/25 02:58 Eos % (Auto) 3.9 % 01/02/25 02:58 Baso % (Auto) 0.8 % 01/02/25 02:58 Neut # (Auto) 4.04 10^3/uL (1.8-7.7) 01/02/25 02:58 Lymph # (Auto) 1.6 10^3/uL (0.8-4.8) 01/02/25 02:58 [place] # (Auto) 0.5 10^3/uL (0.2-0.9) 01/02/25 02:58 Eos # (Auto) 0.3 10^3/uL (0.0-0.8) 01/02/25 02:58 Baso # (Auto) 0.1 10^3/uL (0.0-0.1) 01/02/25 02:58 Nucleated RBC % (auto) 0 % 01/02/25 02:58 Nucleated RBCs # 0.0 /100WBC 01/02/25 02:58 APTT 28.6 SECONDS (23.9-36.7) 01/01/25 04:08 Sodium 143 mmol/L (136-145) 01/02/25 02:58 Potassium 4.0 mmol/L (3.5-5.1) 01/02/25 02:58 Chloride 110 mmol/L (98-107) H 01/02/25 02:58 Carbon Dioxide 23 mmol/L (22-29) 01/02/25 02:58 Anion Gap 14.0 (5-19) 01/02/25 02:58 BUN 16 mg/dL (6-20) 01/02/25 02:58 Creatinine 1.0 mg/dL (0.5-0.9) H 01/02/25 02:58 GFR Calculation 57.4 mL/min (90-130) L 01/02/25 02:58 Glucose 99 mg/dL (65-115) 01/02/25 02:58 Estimat Average Glucose 105 01/01/25 04:00 Hemoglobin A1c 5.3 % (4.0-6.0) 01/01/25 04:00 Calculated Osmolality 297 mOsm/kg (285-295) H 01/02/25 02:58 Calcium 9.5 mg/dL (8.5-10.5) 01/02/25 02:58 Phosphorus 4.7 mg/dL (2.5-4.5) H 01/02/25 02:58 Magnesium 2.1 mg/dL (1.7-2.3) 01/02/25 02:58 Iron 24 ug/dL (37-145) L 01/01/25 06:02 TIBC 368 mcg/dl 01/01/25 06:02 % Saturation 6.5 % (20-50) L 01/01/25 06:02 Unsat Iron Binding 344 ug/dL (112-347) 01/01/25 06:02 Total Bilirubin 0.2 mg/dL (0.15-1.2) 01/02/25 02:58 AST 11 U/L (0-32) 01/02/25 02:58 ALT 7 U/L (0-33) 01/02/25 02:58 Alkaline Phosphatase 67 U/L (35-105) 01/02/25 02:58 Creatine Kinase 74 U/L (26-192) 01/01/25 06:02 Troponin T Baseline 26 ng/L (0-10) H 01/01/25 04:00 Troponin T 120 Minute 146.2 ng/L (0-10) H 01/01/25 06:02 Delta Troponin T 120.2 ABS# (0-10) H* 01/01/25 06:02 Troponin T Hi Sens 6Hr 131.9 ng/L (0-10) H 01/01/25 10:16 Troponin T Hi Sens 6Hr Delta 105.9 ng/L (0-12) H* 01/01/25 10:16 C-Reactive Protein 3.0 mg/L (0.0-4.9) 01/01/25 06:02 NT-Pro-B Natriuret Pep 153 pg/mL (0-125) H 01/01/25 04:00 Total Protein 6.9 g/dL (6.6-8.7) 01/02/25 02:58 Albumin 3.8 g/dL (3.5-5.2) 01/02/25 02:58 Globulin 3.1 g/dL (1.3-4.6) 01/02/25 02:58 Triglycerides 115 mg/dL (0-150) 01/02/25 02:58 Cholesterol 228 mg/dL (0-200) H 01/02/25 02:58 LDL Cholesterol, Calc 134 mg/dL (50-129) H 01/02/25 02:58 HDL Cholesterol 71 mg/dL (60-100) 01/02/25 02:58 LDL/HDL Ratio 1.89 RATIO (0.00-3.22) 01/02/25 02:58 Cholesterol/HDL Ratio 3.21 mg/dL (0.0-4.40) 01/02/25 02:58 Vitamin B12 905 pg/mL (232-1245) 01/01/25 06:02 Folate 10.7 ng/mL (4.8-37.3) 01/02/25 02:58 Procalcitonin 0.04 ng/mL (0-0.5) 01/02/25 02:58 TSH 15.20 uIU/mL (0.27-4.20) H 01/01/25 04:00 Free T4 1.18 ng/dL (0.82-1.77) 01/01/25 06:02 Free T3 2.1 PG/ML (2.0-4.4) 01/01/25 06:02 Urine Color Yellow (Yellow) 01/01/25 23:47 Urine Appearance Clear (CLEAR) 01/01/25 23:47 Urine pH 6.0 (5-7) 01/01/25 23:47 Ur Specific [place] 1.060 (1.005-1.030) H 01/01/25 23:47 Urine Protein Trace (Negative) A 01/01/25 23:47 Urine Glucose (UA) Negative (Normal) 01/01/25 23:47 Urine Ketones Trace (Negative) 01/01/25 23:47 Urine Blood Negative (Negative) 01/01/25 23:47 Urine Nitrate Negative (Negative) 01/01/25 23:47 Urine Bilirubin Negative (Negative) 01/01/25 23:47 Urine Urobilinogen 1.0 mg/dL (Negative) 01/01/25 23:47 Ur Leukocyte Esterase Negative (Negative) 01/01/25 23:47 Urine RBC 6-10 /hpf (0-2) 01/01/25 23:47 Urine WBC 6-10 /hpf (0-5) 01/01/25 23:47 Ur Squamous Epith Cells 0-5 /hpf (0-5) 01/01/25 23:47 Calcium Oxalate Crystal 5-10 /hpf H 01/01/25 23:47 Amorphous Sediment Not Reportable 01/01/25 23:47 Urine Bacteria 1+ /hpf (NONE) H 01/01/25 23:47 Hyaline Casts 0-4 /lpf H 01/01/25 23:47 Urine Creatinine 237 mg/dL (28-217) H 01/01/25 23:47 Urine Opiates Screen Negative ng/mL (Negative) 01/01/25 23:47 Ur Barbiturates Screen Negative ng/mL (Negative) 01/01/25 23:47 Ur Phencyclidine Scrn Negative ng/mL (Negative) 01/01/25 23:47 Ur Amphetamines Screen Negative ng/mL (Negative) 01/01/25 23:47 U Benzodiazepines Scrn Negative ng/mL (Negative) 01/01/25 23:47 Urine Cocaine Screen Negative ng/mL (Negative) 01/01/25 23:47 U Marijuana (THC) Screen Negative ng/mL (Negative) 01/01/25 23:47 Vitals Last Vital Signs Temp 98.5 F 01/02/25 04:00 Pulse 67 01/02/25 04:00 Resp 18 01/02/25 04:00 BP 186/100 01/02/25 07:25 Pulse Ox 94 01/02/25 04:00 O2 Del Method Room Air 01/02/25 04:00 Discharge Plan Discharge Patient Disposition: Home Condition: Stable Prescriptions: New losartan 50 mg Tablet 25 mg PO DAILY 30 Days Qty: 30 0RF atorvastatin 40 mg Tablet 20 mg PO BEDTIME 30 Days Qty: 30 0RF aspirin 81 mg Tablet,Delayed Release (Dr/Ec) 81 mg PO DAILY 30 Days Qty: 30 0RF ferrous sulfate 325 mg (65 mg iron) Tablet,Delayed Release (Dr/Ec) 325 mg PO DAILY Qty: 30 0RF metoprolol tartrate 25 mg Tablet 25 mg PO BID@0900,2100 30 Days Qty: 60 0RF amlodipine 5 mg tablet 5 mg PO DAILY PRN (Reason: SBP more than 150 mmhg) Qty: 10 0RF levothyroxine 100 mcg capsule 100 mcg PO DAILY Qty: 30 0RF Continued bupropion HCl [Wellbutrin SR] 150 mg tablet sustained-release 12 hr 150 mg PO DAILY cholecalciferol (vitamin D3) 10 mcg (400 unit) capsule 10 mcg PO DAILY B-complex with vitamin C Capsule 1 cap PO DAILY melatonin 3 mg capsule 3 mg PO BEDTIME PRN (Reason: Sleep) Discontinued levothyroxine 88 mcg tablet 88 mcg PO QPM Discharge Orders: Discharge Order (Routine); Ordered 01/02/25 Ordered By: Justin Sylvester Referrals: Tamara Martell FNP [Nurse Practitioner, Cardiology] - 01/08/25 4:00 pm Qi Tamez PA [Primary Care Provider, [facility]] - 01/08/25 10:40 am Discharge Diet: Cardiac Discharge Activity: Resume usual activity and Increase activity as tolerated Patient Instructions: Metoprolol (By mouth), Levothyroxine (By mouth), Aspirin (By mouth), Amlodipine (By mouth), Losartan (By mouth), Atorvastatin (By mouth), Chest Pain (DC), Chronic Hypertension (DC), Opioid Safety Activity Restrictions/Additional Instructions: Please check your blood pressure daily at home and maintain a blood pressure diary. Goal blood pressure is between 100-140 systolics. Follow-up with a primary care provider within next 2 weeks with blood pressure diary for further adjustment antihypertensives. Dose of levothyroxine has been increased. You should have a repeat thyroid panel done in 4 weeks. Discharge Attestations Time Spent in Discharge Care*: greater than 30 min Specific Discharge Activities: educating patient, educating and/or supporting family/caregiver, discussing with pcp/other providers, discussing with employment evaluator/case manager/social workers/dc planners, documenting/other paperwork and evaluating patient/reviewing data Status at Discharge: Cognitive status at discharge: cognitively intact , Behavioral status at discharge: cooperative , Functional status at discharge: independent ambulation , Overall status at discharge: patient is back to baseline Quality Metrics Clinical Quality Measures [ No reported AMI, CVA or VTE this stay] Coding Level of Care Code 79416 Total time (in minutes) for Discharge: 65 Diagnoses Non-ST elevated myocardial infarction I21.4 Chest pain R07.9 Accelerated hypertension I10
--- NOTE | 2025-01-02 08:35 | P.PN_ITS ---
<Statement entered by Steven Lawrence M.D - 01/03/25 14:19> Patient was evaluated and cared for in conjunction with an advanced practice practitioner.? I personally examined the patient and reviewed the chart and all pertinent data including imaging, telemetry, and laboratory results.? I discussed the patient in detail with the advanced practice practitioner.? Please see? their note for complete progress note, testing results and agreed upon plan of care for the patient. Patient's blood pressure is uncontrolled. Coronary angiogram showed moderate distal OM lesion however otherwise nonobstructive CAD. Uptitrate antihypertensive medications. Outpatient cardiology follow-up. Echo shows normal LV systolic function with grade 2 diastolic dysfunction. GENERAL: Patient is alert, awake and oriented x3. HEART: Regular S1 and S2 LUNGS: Clear to auscultate bilaterally. CENTRAL NERVOUS SYSTEM: Grossly nonfocal. EXTREMITIES: Lower extremities without edema bilaterally. Subjective 2 Subjective: She has done well from a cardiovascular perspective, has not had any chest pain or shortness of breath. She did get agitated this morning and wants to go home., Blood pressure spiked earlier this morning during that episode of agitation, now down to 145 systolic. Will increase losartan to 75 mg daily, giving an additional 50 mg now. Will observe response and recommend discharge home if blood pressure is improved. No complications with right radial cath site. Vitals/I&O/Wt Last Vital Signs Temp 98.0 F 01/02/25 08:00 Pulse 60 01/02/25 08:00 Resp 18 01/02/25 04:00 BP 149/79 01/02/25 08:53 Pulse Ox 97 01/02/25 08:00 O2 Del Method Room Air 01/02/25 08:00 01/01/25 01/02/25 01/02/25 22:59 06:59 14:59 Intake Total 480 / 778.033 200 / 778.033 Balance 480 / 778.033 200 / 778.033 Weight last 48 hrs Weight 130 lb 9.6 oz Weight 130 lb 6.4 oz Weight 132 lb Physical Exam 2 Const: COMMON NORMALS: no acute distress and patient oriented x3 GENERAL APPEARANCE: cooperative ORIENTATION/CONSCIOUSNESS: Yes awake, Yes oriented to person, Yes oriented to place and Yes oriented to time Chest: COMMONS NORMALS: normal inspection of the chest and normal palpation of entire chest wall CHEST: Yes Symmetrical chest wall rise Resp: COMMON NORMALS: normal respiratory effort, No retractions, No use of accessory muscles and clear to auscultation bilaterally AUSCULTATION: clear to auscultation bilaterally Cardio: COMMON NORMALS: regular rate, regular rhythm, S1 normal heart sound present, S2 normal heart sound present, No gallops present (Cardio), No clicks present (Cardio), No murmurs present (Cardio) and No rub (Cardio) RATE: r egular rate RHYTHM: regular rhythm HEART SOUNDS: S1 normal heart sound present and S2 normal heart sound present PERIPHERAL PULSES: radial pulses present positive right 2+ and femoral pulses present positive right 2+ Neuro: COMMON NORMALS: patient oriented x3 and moves all extremities S ENSORIUM/ORIENTATION: Yes oriented to person, Yes oriented to place and Yes oriented to time Skin: WOUNDS: Yes surgical site (no hematoma palpable) Details: no odor Data 01/02/25 02:58 01/02/25 02:58 A&P Assessment and plan (1) Non-ST elevated myocardial infarction: (2) Accelerated hypertension: (3) Chest pain: Plan Echocardiogram from yesterday shows LVEF 60 to 65%, mild to moderate LVH and grade 2 diastolic dysfunction with mild mitral regurgitation. She should follow-up with cardiology clinic in 2 weeks. Will request she maintain a blood pressure log for adjustment of medications. PDMP PDMP Reviewed: Not Reviewed Attestations 2 Medical Necessity Statement*: Plan for discharge today Coding Level of Care Code Acute Code for Chg Fwd Diagnoses Non-ST elevated myocardial infarction I21.4 Accelerated hypertension I10 Chest pain R07.9
[2025-01-02] MEDS: losartan 50 mg Tablet PO (08:53)
[2025-01-02] MEDS: ondansetron 2 mg/ML SDV 2 mL 4 MG IVP (09:50)
--- NOTE | 2025-01-02 11:40 | PC.NURSE ---
Patient discharged to home. Instruction provided regarding follow up appt, new medications with changes and site care with restrictions. Patient verbalized complete understanding. Patient received meds to bed prior to discharge. Patient taken by wheelchair to private vehicle with family member at side. Patient denies pain or needs presently. No distress observed.
--- NOTE | 2025-01-02 17:10 | CTR_ITS ---
PROCEDURE INFORMATION: Exam: CT Head Without Contrast Exam date and time: 01/02/2025 7:39 AM Age: 54 years old Clinical indication: Headache not specified; Pain on RT side of face, eye feels strained; Additional info: Severe headache TECHNIQUE: Imaging protocol: Computed tomography of the head without contrast. Radiation optimization: All CT scans at this facility use at least one of these dose optimization techniques: automated exposure control; mA and/or kV adjustment per patient size (includes targeted exams where dose is matched to clinical indication); or iterative reconstruction. COMPARISON: No relevant prior studies available. RADIATION DOSE METRICS: Total DLP (mGy-cm): 1044.39 FINDINGS: Brain: There is no mass effect, midline shift, acute hemorrhage, extra-axial fluid collection or acute lobar infarct. Patchy moderate hemispheric white matter disease is noted, indeterminate, possibly representing microvascular ischemic change. 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 Cerebral ventricles: No ventriculomegaly. Paranasal sinuses: Visualized sinuses are unremarkable. No fluid levels. Mastoid air cells: Visualized mastoid air cells are well aerated. Bones: Unremarkable. No acute fracture. Soft tissues: Unremarkable. CT/CT head wo con* [id number] IMPRESSION: Indeterminate hemispheric white matter disease, chronic basal ganglia infarct. Please correlate clinically, suggest MRI of the brain with and without contrast to further assess.
== END 2025-01-02 11:37 | disposition home or self-care (01) | DRG 282 ==
LOC: ER 05:13 → ER IP 05:55 → CSU 09:46
PROVIDERS: Internal Medicine; Admitting Provider Internal Medicine; Emergency Provider Emergency Medicine; PCP Physician Assistant; Visit Provider Student in an Organized Health Care Education/Training Program
PROC: B211YZZ Fluoroscopy of Multiple Coronary Arteries using Other Contrast (ICD-10-PCS; principal; 2025-01-01 12:00)
DX: I10 Essential (primary) hypertension (principal); I21.A1 Myocardial infarction type 2; I25.10 Atherosclerotic heart disease of native coronary artery without angina pectoris; R45.1 Restlessness and agitation; I34.0 Nonrheumatic mitral (valve) insufficiency; G25.81 Restless legs syndrome; E03.9 Hypothyroidism, unspecified; K59.00 Constipation, unspecified; Z79.82 Long term (current) use of aspirin; Z86.73 Personal history of transient ischemic attack (TIA), and cerebral infarction without residual deficits; Z87.442 Personal history of urinary calculi; Z82.49 Family history of ischemic heart disease and other diseases of the circulatory system
CPT/HCPCS: 36415; 70450; 71045; 80053; 80061; 80306; 81001; 82550; 82570; 82607; 82746; 83036; 83540; 83550; 83735; 83880; 84100; 84145; 84439; 84443; 84481; 84484; 85025; 85730; 86140; 93005; 93306; 93458; 94664; 96365; 96366; 96367; 96375; 96376; 99152; 99153; 99291; C1769; C1887; C1894; J0360; J1200; J1644; J2250; J2405; J2470; J3010; J3490; J7030; J9999; Q9967

== ENCOUNTER 2025-01-06 09:40 | Inpatient (IN) | payer SELFPAY ==
[2025-01-06] VITALS (43 sets, daily range): BP systolic 107–182; BP diastolic 65–103; PULSE 51–74; RESP 10–24; TEMP 36.6–36.8; O2SAT 93–100; BMI 23.1
--- NOTE | 2025-01-06 09:47 | ECG_ITS ---
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 Measurements Intervals [place] Rate: 58 P: 56 VT: 146 QRS: 19 QRSD: 93 T: 103 QT: 421 QTc: 415 Interpretive Statements SINUS BRADYCARDIA WITH OCCASIONAL SUPRAVENTRICULAR PREMATURE COMPLEXES ST ELEVATION CONSISTENT WITH INJURY, PERICARDITIS, OR EARLY REPOLARIZATION [ST ELEVATION W/O NORMALLY INFLECTED T-WAVE] ST DEVIATION AND MODERATE T-WAVE ABNORMALITY, CONSIDER LATERAL ISCHEMIA [-0.1+ mV T-WAVE IN I/aVL/V5/V6] Compared to ECG 01/01/2025 09:48:08 ST (T wave) deviation now present Early repolarization now present Sinus rhythm no longer present Myocardial infarct finding no longer present T-wave abnormality still present Possible ischemia still present Electronically Signed On 01-06-2025 11:33:50 CDT by Steven Lawrence M.D. [id number]
--- NOTE | 2025-01-06 09:58 | XR_ITS ---
WS: [id number] XR chest 1V portable [id number] REASON FOR EXAM: chest pain FINDINGS: Chest is unchanged compared to 01/01/2025. The heart and mediastinum are within normal limits. Minimal calcified granulomatous disease bilaterally. No acute pulmonary parenchymal or pleural abnormality. XR/XR chest 1V portable [id number] IMPRESSION: Stable chest without acute abnormality.
[2025-01-06 10:26] LABS: Basophils # 0.1 10^3/uL (0.0-0.1); Basophils % 0.7 %; Eosinophils # 0.3 10^3/uL (0.0-0.8); Eosinophils % 2.7 %; Hematocrit 39.7 % (36-47); Lymphocytes # 1.2 10^3/uL (0.8-4.8); Lymphocytes % 11.9 %; Mean Corpuscular HGB Conc 30.7 g/dL (30-55); Mean Corpuscular Hemoglobin 26.5 pg (27-33); Mean Corpuscular Volume 86.3 fl (85-98); Mean Platelet Volume 8.5 fL (7.4-10.4); Monocytes # 0.4 10^3/uL (0.2-0.9); Monocytes % 3.9 %; Neutrophils # 8.24 10^3/uL (1.8-7.7); Neutrophils % 80.5 %; Nucleated Red Blood Cells % 0 %; Platelet Count 369 10^3/cmm (157-399); Red Cell Distribution Width 15.2 % (12.1-15.1); White Blood Count 10.24 10^3/uL (3.29-11.43)
[2025-01-06] MEDS: LORazepam 1 MG/0.5 ML injection IVP (10:30)
[2025-01-06 10:38] LABS: Troponin(5th) Baseline 29 ng/L (0-10)
--- NOTE | 2025-01-06 10:47 | ED_ITS ---
HPI - Chest Pain 2 General: Chief Complaint: Chest Pain Stated Complaint: CP Time Seen by Provider: 01/06/25 09:41 History of Present Illness: 54-year-old female with history of untre ated hypertension who presents the emergency room with hypertension and chest discomfort.She was admitted recently with chest pain and hypertension similar to this and had a coronary angiogram that showed some moderate distal OM lesion however otherwise nonobstructive coronary disease. Blood pressure medications were adjusted. Echo with normal LV systolic function with grade 2 diastolic dysfunction. She was discharged home. She says she started having chest pain again today. Pressure in the center of her chest. She has had some nausea and vomiting associated with this. No lower extremity swelling. No shortness of breath. She is bradycardic on presentation. No altered mental status. No abdominal pain Related Data Home Medications ?Medication ?Instructions ?Recorded ?Confirmed B-complex with vitamin C 1 cap PO DAILY 06/13/2210/28 bupropion HCl 150 mg tablet,12 hr 150 mg PO DAILY 03/2701/06/25 sustained-release (Wellbutrin SR) cholecalciferol (vitamin D3) 10 10 mcg PO DAILY 01/06/25 mcg (400 unit) capsule melatonin 3 mg capsule 3 mg PO BEDTIME PRN Sleep 01/06/25 levothyroxine 100 mcg tablet 100 mcg PO QAM 01/06/25 0 01/06/25 Previous Rx's ?Medication ?Instructions ?Recorded amlodipine 5 mg tablet 5 mg PO DAILY PRN SBP more t bob 01/02/25 150 mmhg #10 tabs aspirin 81 mg tablet,delayed 81 mg PO DAILY 30 days #3 0 tabs 01/02/25 release atorvastatin 40 mg tablet 20 mg (1/2 x 40 mg) PO BEDTI ME 30 01/02/25 days #30 tabs ferrous sulfate 325 mg (65 mg 325 mg PO DAILY #30 tabs 01/02/25 iron) tablet,delayed release losartan 50 mg tablet 25 mg (1/2 x 50 mg) PO DAILY 30 01/02/25 days #30 tabs metoprolol tartrate 25 mg tablet 25 mg PO BID@0900,210 0 30 days #60 01/02/25 tabs Allergies Allergy/AdvReac Type Severity Reaction Status Date / Time No Known Allergies Allergy Verified 01/06/25 09:53 Review of Systems 2 Narrative: Constitutional symptoms: Negative except as documented in HPI. Skin symptoms: Negative except as documented in HPI. Eye symptoms: Negative except as documented in HPI. ENMT symptoms: Negative except as documented in HPI. Respiratory symptoms: Negative except as documented in HPI. Cardiovascular symptoms: Negative except as documented in HPI. Gastrointestinal symptoms: Negative except as documented in HPI. Genitourinary symptoms: Negative except as documented in HPI. Musculoskeletal symptoms: Negative except as documented in HPI. Neurologic symptoms: Negative except as documented in HPI. Psychiatric symptoms: Negative except as documented in HPI. Endocrine symptoms: Negative except as documented in HPI. PFSH ED 2 PFSH: Medical History No pertinent past medical history neghx: htn,dm,dvt/pe PCP: Qi Tamez Hypothyroid Surgical History Hx of lithotripsy (~2013) jennifer kidneys Family History Father Family history of thyroid problem Denies family history of Colon cancer Ovarian cancer Diabetes Heart disease Hyperlipidemia Breast cancer Hypertension Uterine cancer Stroke Social History Smoking and tobacco/nicotine status: never used tobacco/nicotine Alcohol intake: current Alcohol intake frequency: few times a month Substance/Drug Use: never 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 Skin: Warm, dry. Head: Normocephalic, atraumatic. Neck: Supple, trachea midline. Eye: Extraocular movements are intact. Ears, nose, mouth and throat: mucosa moist. Cardiovascular: Regular, Normal peripheral perfusion. Respiratory: Lungs are clear to auscultation, respirations are non-labored, breath sounds are equal, Symmetrical chest wall expansion. Gastrointestinal: Soft, Nontender, Non distended Musculoskeletal: Normal ROM, no deformity. Neurological: Alert and oriented, No focal neurological deficit observed. Psychiatric: Cooperative, appropriate mood & affect. Course 2 Vital Signs: Vital signs: Vital Signs Temperature 97.8 F 01/06/25 09:42 Pulse Rate 58 L 01/06/25 12:00 Blood Pressure 177/103 01/06/25 12:00 Pulse Oximetry 97 01/06/25 12:00 Oxygen Delivery Me thod Room Air 01/06/25 12:00 MDM - Chest Pain Medical Decision Making Differential diagnosis for patient with chest pain includes but is not limited to and based on the above HPI, review of systems and physical exam: Pneumonia. unstable angina. angina. Acute coronary syndrome / RI. Pulmonary embolism. Costochondritis / musculoskeletal. Pleurisy. Pericarditis. Esophageal spasm. Pancreatis. Cholecystitis. Orders placed to evaluate differential diagnosis based on the above differential, HPI and physical exam EKG: Time 9:47 AM. Rate 58. Sinus bradycardia, nonspecific ST changes. Some ST depression. No ectopy, normal [place] & QRS intervals, This was reviewed and interpreted by the ER physician at 9:55 AM. Chest x-ray: No acute process. No infiltrate. No pneumothorax. This was reviewed and interpreted by myself the emergency room physician. I also reviewed the radiology report. EKG: Time 11:49 AM. Rate 55. Sinus bradycardia. Nonspecific ST changes/ST depression. no ectopy, normal [place] & QRS intervals, This was reviewed and interpreted by myself the ER physician at 11:55 AM Lab Review: Laboratory results were reviewed and interpreted by myself the emergency room physician. No leukocytosis. No anemia. No renal failure. D-dimer is negative so no pulmonary embolism. Initial troponin is 25. Significant delta with an increase to 50 at 2 hours. I reviewed the patient's medical record. Consultation: I spoke with Dr. Mansfield who is on-call for the cardiology service. He recommends Lovenox now and he will consult on the patient. Admit to the hospitalist service. Reexamination: Patient remained stable. No increased work of breathing. No altered mental status. No focal motor deficits. Consultation: I spoke with Dr. Hines who agrees to admission to observation services with telemetry. Assessment and plan: Unstable angina Accelerated hypertension Elevated troponin ?IV Ativan initially. She did have some resolution of symptoms with this. Although she is now having chest pain mildly again which I am giving some morphine. Lovenox ordered as instructed by cardiology. -I discussed the patient with the hospitalist on-call who is admitting the patient. - Discussed findings and plan with patient. Answered any questions. - All laboratory values were reviewed and interpreted personally by myself, the ER physician - All imaging was reviewed and interpreted personally by myself, the ER physician. - Evaluation and treatment of this problem were appropriate in the emergency setting Lab Data 01/06/25 10:08 01/06/25 10:08 Radiology Impressions Chest X-Ray 01/06/25 09:58 IMPRESSION: Stable chest without acute abnormality. Laboratory Results WBC 10.24 10^3/uL (3.29-11.43) 01/06/25 10:08 RBC 4.60 10^6/uL (3.85-5.65) 01/06/25 10:08 Hgb 12.20 g/dL (11.27-16.99) 01/06/25 10:08 Hct 39.7 % (36-47) 01/06/25 10:08 MCV 86.3 fl (85-98) 01/06/25 10:08 MCH 26.5 pg (27-33) L 01/06/25 10:08 MCHC 30.7 g/dL (30-55) 01/06/25 10:08 RDW 15.2 % (12.1-15.1) H 01/06/25 10:08 Plt Count 369 10^3/cmm (157-399) 01/06/25 10:08 MPV 8.5 fL (7.4-10.4) 01/06/25 10:08 Neut % (Auto) 80.5 % 01/06/25 10:08 Lymph % (Auto) 11.9 % 01/06/25 10:08 Frontier % (Auto) 3.9 % 01/06/25 10:08 Eos % (Auto) 2.7 % 01/06/25 10:08 Baso % (Auto) 0.7 % 01/06/25 10:08 Neut # (Auto) 8.24 10^3/uL (1.8-7.7) H 01/06/25 10:08 Lymph # (Auto) 1.2 10^3/uL (0.8-4.8) 01/06/25 10:08 Frontier # (Auto) 0.4 10^3/uL (0.2-0.9) 01/06/25 10:08 Eos # (Auto) 0.3 10^3/uL (0.0-0.8) 01/06/25 10:08 Baso # (Auto) 0.1 10^3/uL (0.0-0.1) 01/06/25 10:08 Nucleated RBC % (auto) 0 % 01/06/25 10:08 Nucleated RBCs # 0.0 /100WBC 01/06/25 10:08 D-Dimer 0.49 ug/mLFEU (0-0.59) 01/06/25 10:08 Sodium 140 mmol/L (136-145) 01/06/25 10:08 Potassium 4.9 mmol/L (3.5-5.1) 01/06/25 10:08 Chloride 104 mmol/L (98-107) 01/06/25 10:08 Carbon Dioxide 24 mmol/L (22-29) 01/06/25 10:08 Anion Gap 16.9 (5-19) 01/06/25 10:08 BUN 18 mg/dL (6-20) 01/06/25 10:08 Creatinine 1.0 mg/dL (0.5-0.9) H 01/06/25 10:08 GFR Calculation 57.4 mL/min (90-130) L 01/06/25 10:08 Glucose 103 mg/dL (65-115) 01/06/25 10:08 Calculated Osmolality 292 mOsm/kg (285-295) 01/06/25 10:08 Calcium 9.8 mg/dL (8.5-10.5) 01/06/25 10:08 Total Bilirubin 0.2 mg/dL (0.15-1.2) 01/06/25 10:08 AST 13 U/L (0-32) 01/06/25 10:08 ALT 8 U/L (0-33) 01/06/25 10:08 Alkaline Phosphatase 79 U/L (35-105) 01/06/25 10:08 Troponin T Baseline 29 ng/L (0-10) H 01/06/25 10:08 Troponin T 120 Minute 54.07 ng/L (0-10) H 01/06/25 11:56 Delta Troponin T 25.07 ABS# (0-10) H* 01/06/25 11:56 NT-Pro-B Natriuret Pep 150 pg/mL (0-125) H 01/06/25 10:08 Total Protein 7.7 g/dL (6.6-8.7) 01/06/25 10:08 Albumin 4.6 g/dL (3.5-5.2) 01/06/25 10:08 Globulin 3.1 g/dL (1.3-4.6) 01/06/25 10:08 Lipase 51 U/L (13-60) 01/06/25 10:08 Urine Color Yellow (Yellow) 01/06/25 12:01 Urine Appearance Clear (CLEAR) 01/06/25 12:01 Urine pH 7.0 (5-7) 01/06/25 12:01 Ur Specific [place] 1.017 (1.005-1.030) 01/06/25 12:01 Urine Protein Trace (Negative) A 01/06/25 12:01 Urine Glucose (UA) Negative (Normal) 01/06/25 12:01 Urine Ketones Negative (Negative) 01/06/25 12:01 Urine Blood 1+ (Negative) A 01/06/25 12:01 Urine Nitrate Negative (Negative) 01/06/25 12:01 Urine Bilirubin Negative (Negative) 01/06/25 12:01 Urine Urobilinogen 0.2 mg/dL (Negative) 01/06/25 12:01 Ur Leukocyte Esterase Negative (Negative) 01/06/25 12:01 Urine RBC 11-20 /hpf (0-2) H 01/06/25 12:01 Urine WBC 0-5 /hpf (0-5) 01/06/25 12:01 Ur Squamous Epith Cells 0-5 /hpf (0-5) 01/06/25 12:01 Amorphous Sediment Not Reportable 01/06/25 12:01 Urine Bacteria None seen /hpf (NONE) 01/06/25 12:01 Hyaline Casts 0-4 /lpf H 01/06/25 12:01 All radiology interpretation(s) finalized by discharge Discharge Plan Discharge Patient Disposition: Placed in Observation Clinical Impression: Unstable angina, Accelerated hypertension, Elevated troponin Coding Level of Care Code ED Cl[employer]anger Attacher for Quan Goodman
[2025-01-06 10:51] LABS: Alanine Aminotransferase 8 U/L (0-33); Albumin Level 4.6 g/dL (3.5-5.2); Alkaline Phosphatase 79 U/L (35-105); Anion Gap 16.9 (5-19); Aspartate Amino Transferase 13 U/L (0-32); Blood Urea Nitrogen 18 mg/dL (6-20); Calcium 9.8 mg/dL (8.5-10.5); Carbon Dioxide 24 mmol/L (22-29); Chloride 104 mmol/L (98-107); Creatinine Clr Calc Pharmacy 56.2965; Globulin 3.1 g/dL (1.3-4.6); Glomerular Filtration Rate 57.4 mL/min (90-130); Glucose 103 mg/dL (65-115); NT Pro B Type Natriuretic Pept 150 pg/mL (0-125); Osmolality Calculated 292 mOsm/kg (285-295); Potassium 4.9 mmol/L (3.5-5.1); Sodium 140 mmol/L (136-145); Total Bilirubin 0.2 mg/dL (0.15-1.2); Total Protein 7.7 g/dL (6.6-8.7)
[2025-01-06 11:08] LABS: D Dimer 0.49 ug/mLFEU (0-0.59)
[2025-01-06 11:11] LABS: Lipase 51 U/L (13-60)
--- NOTE | 2025-01-06 11:15 | PC.PHAR ---
Pt did take am meds today but threw them back up. 01/06/25
--- NOTE | 2025-01-06 11:49 | ECG_ITS ---
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1970 Requested By: Junie Thomson Order Number: [id number] Reading MD: EMERALD MADRIGAL Measurements Intervals [place] Rate: 55 P: 51 AR: 148 QRS: 26 QRSD: 94 T: 118 QT: 445 QTc: 427 Interpretive Statements SINUS BRADYCARDIA ST DEVIATION AND MODERATE T-WAVE ABNORMALITY, CONSIDER LATERAL ISCHEMIA [-0.1+ mV T-WAVE IN I/aVL/V5/V6] Compared to ECG 01/06/2025 09:47:54 ST (T wave) deviation no longer present Early repolarization no longer present T-wave abnormality still present Possible ischemia still present Electronically Signed On 01-07-2025 23:06:32 CDT by EMERALD MADRIGAL [id number]
[2025-01-06 12:20] LABS: Troponin 5 2HR 54.07 ng/L (0-10)
[2025-01-06 12:21] LABS: Troponin 5 2HR Delta 25.07 ABS# (0-10)
[2025-01-06 12:31] LABS: Bilirubin Urine Negative (Negative); Blood Urine 1+ (Negative); Glucose Urine UA Negative (Normal); Ketones Urine Negative (Negative); Leukocyte Esterase Urine Negative (Negative); Nitrate Urine Negative (Negative); Protein Urine Trace (Negative); Specific Gravity, Urine 1.017 (1.005-1.030); Urine Appearance Clear (CLEAR); Urine Color Yellow (Yellow); Urobilinogen Urine 0.2 mg/dL (Negative)
[2025-01-06 12:36] LABS: Bacteria Urine None Seen /hpf; Hyaline Casts Urine 0-4 /lpf; Squamous Epithelial Cell Urine 0-5 /hpf (0-5); WBC Urine 0-5 /hpf (0-5)
[2025-01-06] MEDS: morphine 4 mg/mL SDV 1 mL IVP (13:40)
[2025-01-06] MEDS: ondansetron 2 mg/ML SDV 2 mL 4 MG IVP (13:41)
[2025-01-06] MEDS: enoxaparin 60 mg/0.6 mL Syringe SUBCUT (13:41)
[2025-01-06 13:49] LABS: Add Urine Culture? No
--- NOTE | 2025-01-06 15:23 | PC.NURSE ---
Patient transferred from ED to CSU at 1520, via a wheelchair.
--- NOTE | 2025-01-06 15:52 | P.CONIM_ITS ---
<Statement entered by Roldan Mansfield MD - 01/06/25 19:49> Patient was evaluated and cared for in conjunction with an advanced practice practitioner. I personally examined the patient and reviewed the chart and all pertinent data including imaging, telemetry, and laboratory results. I discussed the patient in detail with the advanced practice practitioner. Please see their note for complete H&P testing result and agreed upon plan of care for the patient. 54-year-old female recently has angiogram was noted to have nonobstructive disease of distal obtuse marginal thought to be mended Qi managed presented with chest pain abnormal cardiac markers suggestive of non-ST elevation ID uncontrolled hypertension who is going through a stressful angelita. Currently she still complaining of chest pressure but has been noticing that is lightening up. Please see detail for H&P below. GENERAL: Patient is alert, awake and oriented x3. HEART: Regular S1 and S2. No murmur, rub or gallop. LUNGS: Clear to auscultate bilaterally. CENTRAL NERVOUS SYSTEM: Grossly nonfocal. EXTREMITIES: Lower extremities with out edema bilaterally. Eil-PE-aqfvhnblt ID (acute coronary syndrome versus stress-induced cardiomyopathy ) Uncontrolled hypertension Patient had recent coronary angiogram which shows moderate distal obtuse marginal disease, it is a small to moderate caliber vessel thought to be managed medically however presented with chest pain inferolateral ST changes more pronounced as compared to the prior EKG, since patient continues to have chest pain with new worsening of T wave inversion on inferolateral EKG with increasing cardiac markers may will consider performing angiogram. She will be kept n.p.o. overnight with possible left heart cath in the morning, would also like to consider stress-induced cardiomyopathy since patient is going through a stressful time. Continue aspirin statin load with Plavix hold Lovenox in the morning for possible left heart cath in the morning. Start patient on nitro drip for more blood pressure control her chest pain For uncontrolled hypertension we will switch patient to carvedil Add amlodipine Continue losartan Providers/Reason For Consult 2 Consulting Physician/Specialty*: Dr. Mansfield Reason for Consult*: Chest pain, elevated troponin Requesting Physician: Dr. Blanco Attending Physician: Bernadette Hines MD Primary Care Provider: Qi Tamez History of Present Illness History of Present Illness Simin Donahue is a 54 year old female with history of uncontrolled hypertension, recent angiogram, presented to the ER today with chest pain and hypertension in which she states she was hospitalized for this last week. Recent echo showed her EF was normal with grade 2 diastolic dysfunction. She had an angiogram that showed moderate distal OM lesion however otherwise nonobstructive coronary artery disease. She denies any lower extremity swelling shortness of breath. She is slightly bradycardic on presentation. She tells me that she has been going through a really hard divorce and has had a lot of anxiety lately. She states she has been unable to check her blood pressure because she ran out of batteries but has been compliant with medication. She describes her chest pain as a squeezing across the chest that sometimes radiates down the left arm. She states that this just occurred today and did not improve and was constant as well as associated with nausea and an episode of vomiting. She was given IV Ativan and had resolution of most symptoms with some residual mild chest discomfort. She states morphine resolves the pressure. Blood pressure was elevated in the 180s/89. HR currently 64. Creatinine stable at 1. Troponins elevated at 29-54.07, previously was up to 105.9 at last hospital stay. At home, she takes amlodipine 5 mg daily, losartan 25 mg daily, and metoprolol 25 mg BID. Review of Systems 2 Narrative: Consitutional: denies fever, chills, body aches, or changes in appetite, denies abnormal weight loss Eyes: Denies changes in vision Card: denies chest pain at this time, palpitations, irregular heart rhythm, edema, syncope, shortness of breath, orthopnea, leg pain with exertion Resp: Denies shortness of breath, denies hemoptysis, denies cough GI: denies abdominal pain, denies nausea or voimting, denies blood in stool : denies blood in urine, denies dysuria Musc: Denies extremity pain, denies limited range of motion or recent injury Skin: Denies rash, lesions, or wounds, denies changes to skin color Neuro: Denies nubmness in extremities, h/a, s/s of stroke Medications/Allergies Home Medications ?Medication ?Instructions ?Recorded ?Confirmed ?Last Taken ?Type B-complex with vitamin C 1 cap PO DAILY 06/13/2210/2801/06/25 History bupropion HCl 150 mg tablet,12 hr 150 mg PO DAILY 03/2701/06/25 01/06/25 History sustained-release (Wellbutrin SR) cholecalciferol (vitamin D3) 10 10 mcg PO DAILY 01/06/25 01/06/25 History mcg (400 unit) capsule melatonin 3 mg capsule 3 mg PO BEDTIME PRN Sleep 01/06/25 Unknown History amlodipine 5 mg tablet 5 mg PO DAILY PRN SBP more t bob 01/02/25 01/06/25 Unknown Rx 150 mmhg #10 tabs aspirin 81 mg tablet,delayed 81 mg PO DAILY 30 days #3 0 tabs 01/02/25 01/06/25 01/06/25 Rx release atorvastatin 40 mg tablet 20 mg (1/2 x 40 mg) PO BEDTI ME 30 01/02/25 01/06/25 01/05/25 Rx days #30 tabs ferrous sulfate 325 mg (65 mg 325 mg PO DAILY #30 tabs 01/02/25 01/06/25 01/06/25 Rx iron) tablet,delayed release losartan 50 mg tablet 25 mg (1/2 x 50 mg) PO DAILY 30 01/02/25 01/06/25 01/06/25 Rx days #30 tabs metoprolol tartrate 25 mg tablet 25 mg PO BID@0900,210 0 30 days #60 01/02/25 01/06/25 01/06/25 Rx tabs levothyroxine 100 mcg tablet 100 mcg PO QAM 01/06/25 0 01/06/25 01/06/25 History Allergies Allergy/AdvReac Type Severity Reaction Status Date / Time No Known Allergies Allergy Verified 01/06/25 09:53 PFSH Acute 2 PFSH: Medical History No pertinent past medical history neghx: htn,dm,dvt/pe PCP: Qi Tamez Hypothyroid Surgical History Hx of lithotripsy (~2013) jennifer kidneys Family History Father Family history of thyroid problem Denies family history of Colon cancer Ovarian cancer Diabetes Heart disease Hyperlipidemia Breast cancer Hypertension Uterine cancer Stroke Social History Smoking and tobacco/nicotine status: never used tobacco/nicotine Alcohol intake: current Alcohol intake frequency: few times a month Substance/Drug Use: never 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 Vitals/I&O/Wt Last Vital Signs Temp 98.0 F 01/06/25 15:25 Pulse 64 01/06/25 15:25 Resp 16 01/06/25 15:25 BP 182/89 01/06/25 15:25 Pulse Ox 100 01/06/25 15:25 O2 Del Method Room Air 01/06/25 15:25 Weight last 48 hrs Weight 135 lb Weight 132 lb Physical Exam 2 Narrative: General: No apparent distress, healthy appearing, well nourished HENMT: normoceophalic Muskuloskeletal: Full ROM Lymphatic: no lymphedema noted Respiratory: Normal respiratory effort, clear to auscultation bilaterally throughout all lung moore, no use of accessory muscles Cardio: No JVD, regular rate, regular rhythm, S1 S2 normal, no murmurs, peripheral pulses 2+ radial palpated bilaterally Extremities: Full ROM, normal, normal capillary refill, no cyanosis or edema Neuro: Alert and oriented x4, no focal motor deficits Psych: Affect normal, denies suicidal ideation, mental status grossly normal Skin: No rashes or lesions noted, no wounds Data 01/06/25 10:08 01/06/25 10:08 A&P Assessment and plan (1) Non-ST elevated myocardial infarction: (2) Accelerated hypertension: (3) Chest pain: Plan At this time, patient's blood pressure is uncontrolled, which may be causing increase in troponin due to demand ischemia. Would recommend increasing amlodipine to 5 mg BID, restart home medications. Monitor for worsening chest pain or EKG changes. We will review patient's angiogram with Dr. Mansfield. Further recommendations to follow. Thank you, Dr. Blanco, for allowing us to care for this very pleasant 54 year old female. PDMP PDMP Reviewed: Not Reviewed Coding Level of Care Code Acute Code for Chg Fwd Diagnoses Non-ST elevated myocardial infarction I21.4 Accelerated hypertension I10 Chest pain, unspecified type R07.9 Chest pain type: unspecified
--- NOTE | 2025-01-06 16:14 | ECG_ITS ---
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: : 1970 Requested By: Junie Thomson Order Number: [id number] Reading MD: EMERALD MADRIGAL Measurements Intervals [place] Rate: 52 P: 55 MS: 149 QRS: 14 QRSD: 90 T: 261 QT: 496 QTc: 461 Interpretive Statements SINUS BRADYCARDIA MODERATE T-WAVE ABNORMALITY, CONSIDER LATERAL ISCHEMIA [-0.1+ mV T-WAVE IN I/aVL/V5/V6] MODERATE T-WAVE ABNORMALITY, CONSIDER INFERIOR ISCHEMIA [-0.1+ mV T-WAVE IN II/aVF] Compared to ECG 01/06/2025 11:49:16 No significant changes Electronically Signed On 01-07-2025 23:07:54 CDT by EMERALD MADRIGAL [id number] [id number]
--- NOTE | 2025-01-06 17:02 | PM.HP ---
Providers/Chief Complaint Admitting Physician: Bernadette Hines MD Primary Care Provider: Qi Tamez Chief Complaint: CP History of Present Illness Simin Donahue is a 54yo woman w/ Anxiety d/o, uncontrolled HTN that was diagnosed at age 18, s/p PCI on 01/02/2025 showing non-obstructive CAD, who presents to the ED on 01/06/2025 w/ complaints of chest pain that began earlier in the day. The patient states that she initially took BP medications when she was in her late 20s to 30s. She started running w/ her child starting in approximately the year 2012. W/ running, the patient was able to discontinue BP meds. Starting in about 2020, she stopped running for multiple life stressors, so her BP started to increase. The patient was hospitalized from 01/01 to 01/02/2025 for chest pain with concern for an NSTEMI. She was s/p a coronary angiogram on 01/02/2025 that showed a moderate lesion in the distal OM blood vessel and otherwise, nonobstructive CAD. Her ECHO showed an EF of 60 to 65% with mild to moderate LVH, grade 2 diastolic dysfxn and mild mitral regurg. She was d/c'ed on Aspirin, Statin, Metop tartrate 25mg BID, Losartan 50mg daily, and also discharged to f/u w/ Cardiology in 2 weeks. The patient states that after her discharge on 01/02, she was compliant with her medications. She was sitting at home this morning drinking coffee and enjoying some quiet time, when she suddenly felt a non-pleuritic, non-positional chest pain that radiated down both arms to both wrists. The chest pain was associated w/ diaphoresis and an episode of emesis, such that she vomited her morning medications. She denies abdominal pain, diarrhea, melena, SOB, palpitations, syncope, visual disturbances, dizziness, light headedness, or headaches, despite having a hx of ocular migraines when under stress. She denies dysuria, hematuria, increased urinary urgency and frequency but states that she has urinary incontinence when sneezing, valsalva maneuvers, and urge incontinence. She attributes her urinary incontinence to having children. In the ED her BP was as high as 182/89 with a HR between 52 to 64 bpm. Her initial high-sensitivity troponin T was 29, but increased to 228.6 at the 6-hour sadi. Her initial EKG showed TWI in lead I and aVL, with ST changes concerning for early elevations in leads II, III, aVF, and V4-V6. Repeat EKG at the 6-hour sadi showed TWI in leads I, II, III, AVF, V4-V6. The EKG during her 01/01/2025 admission that showed TWI in leads II, III, AVF, and in V3-V6. She was given Ativan 1mg IVP x 1, Morphine 4mg IVP x 1, Lovenox 60mg (1mg/kg) x 1, Zofran 4mg IVP x 1. Given the EKG changes, cardiology was consulted from the ED, who recommended admission. While admitting the patient, the Shoer came and saw the patient and told her that there will be a need for a repeat coronary angiogram. Review of Systems Narrative: Constitutional: (-) fever(s), (-) chills, (-) body aches, (-) change in appetite, (-) change in weight, (-) fatigue, (-) malaise, (-) night sweats, (+) diaphoresis Eyes: (-) change in vision, (-) blurry vision, (-) diplopia, (-) floaters, ENT: (-) ear pain, (-) ear discharge, (-) aural fullness, (-) tinnitus, (-)nasal discharge, (-)nasal congestion, (-) post nasal drip, (-)dysphagia, (-)odynophagia, (-)hoarseness, Card: (+) Chest pain, (-) palpitations, (-) pedal edema, (-) orthopnea, (-) lightheadedness, (-) syncope, (-) pre-syncope, (-) leg pain with exertion Resp: (-)dyspnea, (-)dyspnea on exertion, (-) cough, (-) wheezing, (-) hemoptysis GI: (-) abdominal pain, (+) nausea, (+) vomiting, (-) hematemesis, (-) diarrhea, (-) constipation, (-) hematochezia, (-) melena : (-) flank pain, (-) dysuria, (-) hematuria, (-) urinary urgency, (-) urinary frequency, (-)oliguria, (-) difficulty voiding, (+) urinary incontinence, (-) urinary hesitancy, (-) dribbling, (-) nocturia, (-) genital pruritis MSK: (-) myalgias, (+) arthralgias - attributed to aging. Skin/Breast: (-) rash, (-) sores, (-) new lesions, (-) breast tenderness, (-) breast pain, or (-) nipple discharge Neuro: (-) headaches, (-) dizziness, (-) generalized weakness, (-) weakness in the extremities, (-) numbness in extremities, (-) tingling, (-) frequent falls, (-) Slurred speech present, (-) seizure-like activity, (-) involuntary movements, (+) restless legs Psych: (+) anxiety, (-) depression, (-)paranoia, (-) visual hallucinations, (-) auditory hallucinations, (-)tactile hallucinations, (-) suicidal ideation, (-) homicidal ideation Endo: (-) polyuria, (-) polydipsia, (-) polyphagia, (-)cold intolerance, (-) heat intolerance Heme/Lymph: (+) easy bruising, (-) easy bleeding, (-) petechiae, (-) purpura, (-) enlarged lymph nodes, (-) tender lymph nodes Allergy/Immunlogy: (-) food intolerance, (-) hives/urticaria, (-) itchy/watery eyes, (-) tongue/throat swelling, (-) facial swelling Medications/Allergies Home Medications ?Medication ?Instructions ?Recorded ?Confirmed ?Last Taken ?Type B-complex with vitamin C 1 cap PO DAILY 06/13/22 01/06/25 01/06/25 History bupropion HCl 150 mg tablet,12 hr 150 mg PO DAILY 06/13/22 01/06/25 01/06/25 History sustained-release (Wellbutrin SR) cholecalciferol (vitamin D3) 10 10 mcg PO DAILY 06/13/22 01/06/25 01/06/25 History mcg (400 unit) capsule melatonin 3 mg capsule 3 mg PO BEDTIME PRN Sleep 06/13/22 01/06/25 Unknown History amlodipine 5 mg tablet 5 mg PO DAILY PRN SBP more than 01/02/25 01/06/25 Unknown Rx 150 mmhg #10 tabs aspirin 81 mg tablet,delayed 81 mg PO DAILY 30 days #30 tabs 01/02/25 01/06/25 01/06/25 Rx release atorvastatin 40 mg tablet 20 mg (1/2 x 40 mg) PO BEDTIME 30 01/02/25 01/06/25 01/05/25 Rx days #30 tabs ferrous sulfate 325 mg (65 mg 325 mg PO DAILY #30 tabs 01/02/25 01/06/25 01/06/25 Rx iron) tablet,delayed release losartan 50 mg tablet 25 mg (1/2 x 50 mg) PO DAILY 30 01/02/25 01/06/25 01/06/25 Rx days #30 tabs metoprolol tartrate 25 mg tablet 25 mg PO BID@0900,2100 30 days #60 01/02/25 01/06/25 01/06/25 Rx tabs levothyroxine 100 mcg tablet 100 mcg PO QAM 01/06/25 01/06/25 01/06/25 History Allergies Allergy/AdvReac Type Severity Reaction Status Date / Time No Known Allergies Allergy Verified 01/06/25 09:53 PFSH Acute PFSH: Medical History (Updated 01/07/25 @ 00:07 by Bernadette Hines MD) No pertinent past medical history neghx: htn,dm,dvt/pe PCP: Qi Tamez Hypothyroid Surgical History Hx of lithotripsy (~2013) jennifer kidneys Family History Father Family history of thyroid problem Denies family history of Colon cancer Ovarian cancer Diabetes Heart disease Hyperlipidemia Breast cancer Hypertension Uterine cancer Stroke Social History (Updated 01/07/25 @ 00:05 by Bernadette Hines MD) Smoking and tobacco/nicotine status: never used tobacco/nicotine Alcohol intake: current Alcohol intake frequency: few times a month Substance/Drug Use: current Substance/Drug use type: Marijuana Other substance/drug use details: smokes MJ for her restless leg syndrome. 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 Vitals/I&O/Wt Last Vital Signs Temp 98.0 F 01/06/25 15:25 Pulse 64 01/06/25 15:25 Resp 16 01/06/25 15:25 BP 182/89 01/06/25 15:25 Pulse Ox 100 01/06/25 15:25 O2 Del Method Room Air 01/06/25 15:25 Weight last 48 hrs Weight 61.235 kg Weight 59.874 kg Physical Exam Narrative: Constitutional: GENERAL APPEARANCE: cooperative, comfortable; HENT: HEAD & SCALP: normocephalic and atraumatic; NOSE: external nose not normal EXTERNAL EAR: no external ears normal MOUTH: Normal oral and palatal mucosa present THROAT: posterior oropharynx normal Eye: PERRL, EOMI, normal conjunctiva b/l Neck: normal visual inspection, trachea midline, No anterior neck swelling, No tracheal deviation, No tracheostomy present, no submandibular swelling, Thyroid normal , cervical ROM normal Lymph: no cervical, supraclavicular LAD Resp: no use of accessory muscles, CTAB, no w/r/r Cardio: RRR, no m/r/g, or clicks. 2+ radial and DP pulses. GI: normoactive bowel sounds, non-tender, non-distended, no guarding, no rigidity, no rebound tenderness, no hepatosplenomegaly. : Deferred Back/Pelvis: Deferred Extremity: No clubbing, No cyanosis and No edema Neuro: AO to person, place and time. CN normal except as noted. Normal gait present. 5/5 motor strength present throughout. Normal motor muscle tone present throughout. No tremor noted. No motor abnormalities present. No motor fasciculations present Psych: APPEARANCE: Yes grossly normal ATTITUDE: Yes calm and Yes engaged ACTIVITY/MOTOR BEHAVIOR: Yes appropriate eye contact SPEECH: Yes normal speech MOOD & AFFECT: Yes euthymic mood THOUGHT PROCESS: Normal thought process present THOUGHT CONTENT: Yes Normal thought content present ATTENTION/CONCENTRATION: Yes attention grossly intact MEMORY/COGNITION: Yes memory grossly intact Data 01/06/25 10:08 01/06/25 10:08 A&P Assessment and plan (1) Accelerated hypertension: (2) Acute coronary syndrome: (3) Non-ST elevated myocardial infarction: (4) Hypothyroid: (5) Hyperlipidemia LDL goal <70: Plan Simin Donahue is a 54yo woman w/ Anxiety d/o, uncontrolled HTN that was diagnosed at age 18, s/p PCI on 01/02/2025 showing non-obstructive CAD, who presents to the ED on 01/06/2025 w/ complaints of chest pain that began earlier in the day. #Acute Coronary Syndrome #Possible NSTEMI Type I #HTN #HLD: LDL of 134 on 01/02/2025 - Give 243mg Aspirin x 1 since she took some in the AM and later had an episode of emesis. Give an additional 30mg Lovenox for a total of 1.5mg/kg today. Started Hydralazine IVP w/ parameters. Start Atorvastatin 80mg daily. She is on Atorvastatin 20mg at home. Pain control w/ dilaudid IVP. Ordered 1L NS at 200cc/hr. Will give another 1L for a total of 2L. - Continue to trend Trop T. F/u CK, UDS - Defer ordering of ECHO to Cardiology. - Cardiology consulted and following. Plan for laboratory animal care veterinarian in the AM. #N/V - Antiemetics ordered. #Hypothyroidism - Continue home Levothyroxine. #Anxiety d/o - Patient states that she has tried Paxil, Celexa, and Cymbalta in the past but had side effects such as low libido. She felt that Buproprion helped take the edge off. - Resume Bupropion. #RLS - She tells me that she used to take a Ropinirole, but the effect wore off. So, she smokes Cannabis to help her w/ her RLS. #Iron deficiency anemia: On oral iron. She does need an EGD/colonoscopy likely as outpatient. F/u Ferritin. DVT ppx: Full dose lovenox. PDMP PDMP Reviewed: Not Reviewed Attestations Medical Necessity Statement*: The patient is to be hospitalized for greater than 2 midnights for acute coronary syndrome with an evolving NSTEMI type I. Coding Level of Care Code 44316 High Time for a total of 77 minutes, includes reviewing past or interval history, examining/interviewing patient, placing orders, counseling patient/family/other support, updating patient/family/other support, discussing plan of care with staff, communicating with other healthcare providers, documenting encounter and coordinating care Diagnoses Accelerated hypertension I10 Acute coronary syndrome I24.9 Non-ST elevated myocardial infarction I21.4 Hypothyroid E03.9 Hyperlipidemia LDL goal <70 E78.5
[2025-01-06 17:14] LABS: Troponin 5 6HR 228.6 ng/L (0-10); Troponin 5 6HR Delta 199.6 ng/L (0-12)
--- NOTE | 2025-01-06 17:23 | ECG_ITS ---
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1970 Requested By: Bernadette Hines Order Number: [id number] Reading MD: EMERALD MADRIGAL Measurements Intervals [place] Rate: 58 P: 50 UT: 141 QRS: -13 QRSD: 98 T: 258 QT: 490 QTc: 483 Interpretive Statements SINUS BRADYCARDIA LEFT VENTRICULAR HYPERTROPHY AND ST-T CHANGE [VOLTAGE CRITERIA PLUS ST/T ABNORMALITY] Compared to ECG 01/06/2025 16:14:36 Left ventricular hypertrophy now present ST (T wave) deviation now present T-wave abnormality no longer present Possible ischemia no longer present Electronically Signed On 01-07-2025 23:08:01 CDT by EMERALD MADRIGAL [email or web address] [id number]
[2025-01-06] MEDS: enoxaparin 30 mg/0.3 mL Syringe SUBCUT (19:03)
[2025-01-06] MEDS: aspirin 81 mg Chew Tablet 243 MG PO (19:03)
--- NOTE | 2025-01-06 19:22 | PC.NURSE ---
Verbal order per Dr Hines for 1000 NS 200mL/hr for only 1 liter.
[2025-01-06] MEDS: sodium chloride 0.9% 1,000 ML 200 ML IV (20:50)
[2025-01-06] MEDS: sennosides 8.6 mg Tablet 17.2 MG PO (20:51)
[2025-01-06 21:30] LABS: Troponin T (5th) Once 1690 ng/L (0-10)
[2025-01-06 22:14] LABS: Bilirubin Urine Negative (Negative); Blood Urine 1+ (Negative); Glucose Urine UA Negative (Normal); Ketones Urine Negative (Negative); Leukocyte Esterase Urine Negative (Negative); Nitrate Urine Negative (Negative); Protein Urine Negative (Negative); Specific Gravity, Urine 1.011 (1.005-1.030); Urine Appearance Clear (CLEAR); Urine Color Yellow (Yellow); Urobilinogen Urine 0.2 mg/dL (Negative)
[2025-01-06 22:19] LABS: Add Urine Microscopic? YES; Bacteria Urine None Seen /hpf; Hyaline Casts Urine 0-4 /lpf; RBC Urine 0-2 /hpf (0-2); Squamous Epithelial Cell Urine 0-5 /hpf (0-5); WBC Urine 0-5 /hpf (0-5)
[2025-01-06] MEDS: nitroglycerin drip 50 MG/250 ML PREMIX IV (23:13)
[2025-01-06] MEDS: clopidogrel 300 mg Tablet 600 MG PO (23:19)
--- NOTE | 2025-01-06 23:27 | ECG_ITS ---
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1970 Requested By: Bernadette Hines Order Number: [id number] Reading MD: EMERALD MADRIGAL Measurements Intervals [place] Rate: 61 P: 50 NC: 151 QRS: -26 QRSD: 94 T: -88 QT: 508 QTc: 512 Interpretive Statements SINUS RHYTHM BORDERLINE LEFT AXIS DEVIATION [QRS AXIS < -20] MODERATE T-WAVE ABNORMALITY, CONSIDER ANTEROLATERAL ISCHEMIA [-0.1+ mV T-WAVE IN V3-V6] MODERATE T-WAVE ABNORMALITY, CONSIDER INFERIOR ISCHEMIA [-0.1+ mV T-WAVE IN II/aVF] Compared to ECG 01/06/2025 18:14:36 T-wave abnormality now present Possible ischemia now present Sinus bradycardia no longer present Left ventricular hypertrophy no longer present ST (T wave) deviation no longer present Electronically Signed On 01-07-2025 22:49:31 CDT by EMERALD MADRIGAL [id number] [id number]
[2025-01-07] VITALS (45 sets, daily range): BP systolic 105–133; BP diastolic 61–81; PULSE 51–88; RESP 6–32; TEMP 36.6–36.9; O2SAT 93–99
[2025-01-07 00:28] LABS: Amphetamines Screen Urine Negative (Negative); Barbiturates Screen Urine Negative (Negative); Benzodiazepines Screen Urine Negative (Negative); Cocaine Screen Urine Negative (Negative); Opiate Screen Urine Positive (Negative); PCP Screen Urine Negative (Negative); THC Screen Urine Negative (Negative)
[2025-01-07] MEDS: atorvastatin 40 mg Tablet 80 MG PO ×2 (00:48→21:57)
[2025-01-07 01:53] LABS: Troponin T (5th) Once 2590 ng/L (0-10)
[2025-01-07 01:59] LABS: Creatine Phosphokinase 62 U/L (26-192); Ferritin 33 ng/mL (15-150)
[2025-01-07] MEDS: heparin 5,000 unit/mL INJ 1 mL IVP (03:21)
[2025-01-07] MEDS: heparin drip 25,000 UNIT/500 ML PREMIX 17 UNIT IV (03:21)
--- NOTE | 2025-01-07 04:44 | PC.NURSE ---
Patient carvedilol and losartan were held per Dr Mansfield and Hep gtt was ordered to start after 0300.
[2025-01-07 05:08] LABS: Basophils # 0.1 10^3/uL (0.0-0.1); Basophils % 0.9 %; Eosinophils # 0.2 10^3/uL (0.0-0.8); Eosinophils % 3.8 %; Hematocrit 34.4 % (36-47); Lymphocytes # 2.2 10^3/uL (0.8-4.8); Lymphocytes % 34.8 %; Mean Corpuscular HGB Conc 30.8 g/dL (30-55); Mean Corpuscular Hemoglobin 26.1 pg (27-33); Mean Corpuscular Volume 84.7 fl (85-98); Mean Platelet Volume 8.6 fL (7.4-10.4); Monocytes # 0.5 10^3/uL (0.2-0.9); Monocytes % 7.6 %; Neutrophils # 3.32 10^3/uL (1.8-7.7); Neutrophils % 52.6 %; Nucleated Red Blood Cells % 0 %; Platelet Count 288 10^3/cmm (157-399); Red Blood Count 4.06 10^6/uL (3.85-5.65); White Blood Count 6.32 10^3/uL (3.29-11.43)
[2025-01-07 05:19] LABS: 25 Hydroxy Vitamin D 92 ng/mL (30-100)
[2025-01-07 06:20] LABS: Troponin T (5th) Once 2264 ng/L (0-10)
[2025-01-07 06:35] LABS: Albumin Level 3.8 g/dL (3.5-5.2); Alkaline Phosphatase 72 U/L (35-105); Chloride 105 mmol/L (98-107); Potassium 4.2 mmol/L (3.5-5.1); Sodium 138 mmol/L (136-145)
[2025-01-07 06:39] LABS: Alanine Aminotransferase 14 U/L (0-33); Anion Gap 16.3 (5-19); Aspartate Amino Transferase 80 U/L (0-32); Blood Urea Nitrogen 13 mg/dL (6-20); Calcium 8.5 mg/dL (8.5-10.5); Carbon Dioxide 22 mmol/L (22-29); Creatinine Clr Calc Pharmacy 62.9118; Globulin 2.6 g/dL (1.3-4.6); Glomerular Filtration Rate 64.8 mL/min (90-130); Glucose 89 mg/dL (65-115); Osmolality Calculated 292 mOsm/kg (285-295); Phosphorus 3.8 mg/dL (2.5-4.5); Total Bilirubin 0.4 mg/dL (0.15-1.2); Total Protein 6.4 g/dL (6.6-8.7)
[2025-01-07] MEDS: diphenhydrAMINE 50 mg Capsule PO (06:50)
[2025-01-07] MEDS: sodium chloride 0.9% 1,000 ML 50 ML IV (06:50)
[2025-01-07] MEDS: aspirin 325 mg Tablet PO (06:50)
[2025-01-07] MEDS: losartan 50 mg Tablet PO (08:49)
[2025-01-07] MEDS: carvedilol 3.125 mg Tablet PO ×2 (08:49→17:26)
--- NOTE | 2025-01-07 09:04 | XACV_ITS ---
Exam Room: 2 Ht: 163 cm Wt: 60 kg BSA: 1.66 m2 Gender: Female : 1970 Any Known Allergies: No known allergies Exam Priority: Routine Procedure(s): Procedure Description: Diagnostic procedure Procedure Description: Left Heart Catheterization Procedure Description: Left ventriculography Procedure Description: Miscellaneous Procedure Description: ACT Procedure Description: Coronary Angiography Donal AARON; Diagnostic Cath Status: Elective Diagnostic Findings * Second Obtuse Marginal Branch Segment: severe 90% stenosis, ELISABET: 3 flow. Spontaneous coronary artery dissection was noted, since is at a distal segment of obtuse marginal 2 and because of the fact there is ELISABET III flow we will monitor it medically. * No disease noted in the Left Main, Left Anterior Descending, Right, or Circumflex coronary arteries. * Coronary angiography shows right dominance. PCI Indication: NSTE - ACS Conclusions 1. No disease noted in the Left Main, Left Anterior Descending, Right, or Circumflex coronary arteries. 2. All moore are normal. 3. Normal left ventricular systolic function. Ejection fraction of 60%. Recommendations * Continue current medical management and risk factor modification. Diagnostic RX Recommendation: medical therapy and/or counseling Ventriculography Ejection Fraction: 60.0 % Pressures Phase:Rest AO : 119 / 80 ( 97 ) @ 11:03:00 AM 139 / 82 ( 107 ) @ 11:15:00 AM LV : 132 / -7 / 12 @ 11:13:00 AM 140 / -4 / 11 @ 11:15:00 AM Clinical Evaluation EBL: 5mL-10mL Procedural Details Procedure Consent Obtained. Pre-Procedure Time Out. Identified patient by full name and date of as verbalized by the patient/guarantor. Does the consent match the physician's order: Yes. Accurate & Complete Informed Consent: Yes. Inpatient/Outpatient History & Physical on Chart: Yes. If H&P is completed, is and addenduem needed: No; If yes, is the addendum complete: N/A. Visualize and Verify Site with Patient/Guarantor: N/A. Relevant Radiology Images available: Yes. Pre-op teaching completed and patient verbalized understanding. The risks, benefits, and alternatives of sedation and/or procedure were discussed by physician. The patient agrees to continue. Procedure started. [facility] Clinical Fraility Score: 4: Vulnerable. Restorative Art Embalmer Indications: Other. Chest Pain Symptom Assessment: Typical Angina Symptoms. Correct patient, site and procedure confirmed by cath team. Current diagnosis: NSTEMI. PERRLA. 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 Lungs clear x 5 lobes. IV Site on Arrival: 20 gauge in the left anticubital. IV Fluids: 0.9% NaCl at KVO. 0 mL infused prior to medical lab scientist. Oxygen started at 2liters/min via nasal canula. bilateral groins was prepped with chloroprep then draped in the usual sterile fashion. right radial was prepped with chloroprep then draped in the usual sterile fashion. Baseline sample Acquired. HR: 56 BPM. Physician arrived. Current Diagnosis : NSTEMI. Physician scrubbed in. Immediate Pre-Procedure Time Out. Correct Patient: Yes; Correct Procedure: Yes; Correct Site: Yes; Correct Patient Position: Yes; Correct Supplies: Yes; Dried Flammable Prep: Yes; Blood Products Available: N/A;. Lidocaine 1% infiltrated to the right radial. Arterial access obtained. A 5 kinyarwanda TIG catheter in over wire. ACT drawn. Results 184 seconds. Therapeutic limits - pre-heparin administration 90-150 seconds and monitoring heparin during a vascular procedure >250 seconds. Multiple views taken of left coronary artery. Catheter redirected to the RCA. Multiple views taken of right coronary artery. Catheter removed over the exchange wire. Physician review of cine films. A 5 kinyarwanda Angled Pig catheter in over wire. EDP Sample taken: LV 132/-8,12; HR: 68 BPM; SpO2: 98%. LV gram performed in DOS SANTOS @ 10 mL/second for a total of 30 mL. EDP Sample taken: LV 140/-5,11; HR: 75 BPM; SpO2: 96%. Pullback taken: LV Off; AO Off; Mean: , Peak to Peak: , SEP: ; HR: 82 BPM; SpO2: 95%. Catheter removed over the exchange wire. Physician scrubbed out. A TR Band was successful obtaining hemostatsis at the Right Radial artery insertion site. Post Procedure: Pulses reassessed and unchanged. PERRLA. 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 No VTE prophylaxis required. Medication's Wasted: Other = Fentanyl 50 mcg. Total IV fluids: 35 mL. Medication's Wasted: Lidocaine 1% = 18 mL. Medication's Wasted: Nitro = 49.8 mcg. Medication's Wasted: Heparin = 1000 units. Post-op diagnosis: Spontaneous CAD of OM. Complications: None. Estimated blood loss: 5mL-10mL. Responsiveness - Normal response to verbal stimuli; alert and oriented, PERRLA. Airway - Unaffected, no intervention required; spontaneous ventilation. Circulation: W/N/L, pulses unchanged. Nausea/Vomiting: No. Procedure completed. Patient transferred by bed to 1st floor. Vital chart was stopped. Access Site Site: Right Radial artery Sheath Size: 6 Fr Hemostasis Method: TR Band Hemostasis Success: Successful Procedure Medications Start: 9:52 AM Stop: 9:52 AM Medication: Versed 1 mg and Fentanyl 25 mcg Amount: 1 Route: I.V. Start: 10:00 AM Stop: 10:00 AM Medication: Nitrogylcerin Amount: 200 mcg Route: I.A. Start: 10:07 AM Stop: 10:07 AM Medication: Heparin Amount: 5000 units Route: I.V. Start: 10:09 AM Stop: 10:09 AM Medication: Versed 1 mg and Fentanyl 25 mcg Amount: 1 Route: I.V. I, the attending physician, have reviewed and verified all procedure medications. Yes, all medications given per verbal order History/Risk Factors Hypertension: Yes Dyslipidemia: Yes Peripheral Arterial Disease (PAD): No Myocardial Infarction (GA): No Obesity: No Renal Disease: No Tobacco Use: Never Prior Interventions PCI: No CABG: No Valve Surgery: No Report Signatures Finalized by Roldan Mansfield MD on 01/11/2025 10:26 PM
[2025-01-07 09:33] LABS: Troponin T (5th) Once 1422 ng/L (0-10)
[2025-01-07 09:47] LABS: Partial Thromboplastin Time 152.2 SECONDS (23.9-36.7)
--- NOTE | 2025-01-07 09:47 | PC.NURSE ---
PTT came back at 152.2 but patient is in [facility]. Adelina from [facility] notified.
--- NOTE | 2025-01-07 09:52 | W.PM.OPSUD ---
Surgery/Procedure H&P Update DATE OF PROCEDURE: January 07, 2025 DATE H&P PERFORMED: 01/06/25 H&P UPDATE INFORMATION: I have reviewed H&P completed within last 30 days, I have examined patient prior to procedure, No changes to prior documentation and Changes to prior documentation as noted here PREOP DIAGNOSIS: [id number] FL PRIMARY INDICATION FOR PROCEDURE: [id number] FL PATIENT REASSESSED PRIOR TO SEDATION, WITH NO CHANGE NOTED: Yes PHYSICAL EXAM: alert, oriented x 3, clear to auscultation bilaterally, regular rate & rhythm and operative site marked AIRWAY EVAL/ANESTHESIA PLAN: ASA II, Risks, benefits & alternatives of sedation and/or procedure discussed and Patient agrees to continue as planned ADDITIONAL INFORMATION: Patient has been explained all risk-benefit and alternative for the procedure. Patient understand 2% risk of stroke major bleed. Patient understand 5 to 6% risk of contrast-induced nephropathy infection hematoma laceration bruising urgent emergent vascular bypass surgery. She understood and would like to proceed with it.
--- NOTE | 2025-01-07 10:02 | PC.CHAP ---
Pastoral Care Encounter/Spiritual Assessment Type of Contact [] Declined flagman visit [] Patient/Family/Request visit [] Outpatient visit [] Follow-up visit [] Physician referral [] Code/Alert [] Routine visit [] Staff referral [] Actively dying [] Patient sleeping [] Family support [] [x] Out of room [] Palliative care [] [] Receiving care in room [] Pre-surgical visit [] Trauma [] Long length of stay [] ICU visit [] Other: Relational/Emotional Strength [] Patient feels connected with others/family/visitors/staff [] Distress [] Loneliness/isolation [] Abandonment Spirituality of Patient [] Person of Laura [] Attends Scientology of their Laura [] Believes in Prayer [] Reads Bible or Denominational materials [] There are Spiritual issues to be addressed 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 Interventions [] Prayer [] Active listening [] Non-anxious presence [] Spiritual/emotional support [] Crisis/trauma care [] Spiritual counseling [] Bereavement support [] Provided bereavement packet [] Provided Bible/devotional materials [] Provided toy/stuffed animal, coloring book to patient or family member [] Provided Communion [] Anointing/[place] [] Salvation [] Completed spiritual assessment [] Other: Impact on Illness or Injury [] Angry [] Fearful [] Anxious [] Often cries [] Exhaustion [] Unable to work [] Unable to attend hoahaoism [] Unable to walk/stand [] Unable to read [] Unable to drive [] Unable to eat/drink [] Unable to sleep [] Unable to be with family [] Patient intubated [] Other: Summary Time spent with patient
--- NOTE | 2025-01-07 10:29 | PM.PROC ---
Procedure Note: Date of procedure: 01/07/25 Pre-procedure diagnosis: [id number] M Procedure: Left heart cath was performed Left main normal LAD: Normal Left circumflex proximal to mid is normal Obtuse marginal 1 has very distal small caliber segment with spontaneous coronary artery dissection Distal groove circumflex as small caliber thin segment with moderate disease not amenable to intervention or possible scad RCA nondominant vessel without significant stenosis LV gram: Normal ejection fraction no wall motion abnormality hyperdynamic base though Plan: Continue aspirin statin and Plavix Continue beta-luis f, losartan for good blood pressure control Consider antianxiety medicine Add isosorbide mononitrate to the regimen Discontinue heparin Full note to be dictated Coding Level of Care Code Acute Code for Quan Goodman
--- NOTE | 2025-01-07 11:28 | PC.NURSE ---
patient returned from blood and plasma laboratory assistant at 1032. TR band in place with 19ml of air. Report taken from Luisa Vasquez RN.
[2025-01-07] MEDS: isosorbide mononitrate ER 30 mg Tablet PO (11:52)
[2025-01-07] MEDS: sodium chloride 0.9% 1,000 ML 100 ML IV (11:52)
[2025-01-07] MEDS: aspirin 81 mg EC Tablet PO (11:52)
--- NOTE | 2025-01-07 14:21 | P.PN_ITS ---
Subjective 2 Subjective: Patient underwent a left heart cath this morning and a distal small caliber segment of the Obtuse Marginal I vessel was noted to have spontaneous coronary artery dissection Vitals/I&O/Wt Last Vital Signs Temp 98.0 F 01/07/25 11:45 Pulse 62 01/07/25 11:45 Resp 18 01/07/25 11:45 BP 115/77 01/07/25 11:45 Pulse Ox 98 01/07/25 11:45 O2 Del Method Room Air 01/07/25 11:45 01/06/25 01/07/25 01/07/25 22:59 06:59 14:59 Intake Total 120 / 120 1000 / 1120 616.05 / 616.05 Output Total 500 / 500 Balance 120 / 120 500 / 620 616.05 / 616.05 Weight last 48 hrs Weight 60.691 kg Weight 61.235 kg Weight 59.874 kg Physical Exam 2 Narrative: Constitutional: GENERAL APPEARANCE: cooperative, comfortable; HENT: HEAD & SCALP: normocephalic and atraumatic; NOSE: external nose not normal EXTERNAL EAR: no external ears normal MOUTH: Normal oral and palatal mucosa present THROAT: posterior oropharynx normal Eye: PERRL, EOMI, normal conjunctiva b/l Neck: normal visual inspection, trachea midline, No anterior neck swelling, No tracheal deviation, No tracheostomy present, no submandibular swelling, Thyroid normal , cervical ROM normal Lymph: no cervical, supraclavicular LAD Resp: no use of accessory muscles, CTAB, no w/r/r Cardio: RRR, no m/r/g, or clicks. 2+ radial and DP pulses. GI: normoactive bowel sounds, non-tender, non-distended, no guarding, no rigidity, no rebound tenderness, no hepatosplenomegaly. : Deferred Back/Pelvis: Deferred Extremity: No clubbing, No cyanosis and No edema Neuro: AO to person, place and time. CN normal except as noted. Normal gait present. 5/5 motor strength present throughout. Normal motor muscle tone present throughout. No tremor noted. No motor abnormalities present. No motor fasciculations present Psych: APPEARANCE: Yes grossly normal ATTITUDE: Yes calm and Yes engaged ACTIVITY/MOTOR BEHAVIOR: Yes appropriate eye contact SPEECH: Yes normal speech MOOD & AFFECT: Yes euthymic mood THOUGHT PROCESS: Normal thought process present THOUGHT CONTENT: Yes Normal thought content present ATTENTION/CONCENTRATION: Yes attention grossly intact MEMORY/COGNITION: Yes memory grossly intact Data 01/07/25 04:29 01/07/25 04:29 A&P Assessment and plan (1) Accelerated hypertension: (2) Acute coronary syndrome: (3) Non-ST elevated myocardial infarction: (4) Hypothyroid: (5) Hyperlipidemia LDL goal <70: Plan Simin Donahue is a 54yo woman w/ Anxiety d/o, uncontrolled HTN that was diagnosed at age 18, s/p PCI on 01/02/2025 showing non-obstructive CAD, who presents to the ED on 01/06/2025 w/ complaints of chest pain that began earlier in the day. In the ED her BP was as high as 182/89 with a HR between 52 to 64 bpm. Her initial high- sensitivity troponin T was 29, but increased to 228.6 at the 6-hour sadi. Her initial EKG showed TWI in lead I and aVL, with ST changes concerning for early elevations in leads II, III, aVF, and V4-V6. Repeat EKG at the 6-hour sadi showed TWI in leads I, II, III, AVF, V4-V6. The EKG during her 01/01/2025 admission that showed TWI in leads II, III, AVF, and in V3-V6. She was given Ativan 1mg IVP x 1, Morphine 4mg IVP x 1, Lovenox 60mg (1mg/kg) x 1, Zofran 4mg IVP x 1. Given the EKG changes, cardiology was consulted from the ED, who recommended admission. On admission, the patient's high-sensitivity troponin T, increased to as high as 2500. She is status post left heart cath on 01/07/2025 and a distal small caliber segment of the Obtuse Marginal I vessel was noted to have spontaneous coronary artery dissection. She was also noted to have moderate disease in the distal groove of the LCx not amendable to intervention, but also concerning for possible scad. She was continued on daily Aspirin, started on Aarvedilol, Atorvastatin, Plavix, and Imdur, and continued on continuing Losartan. #Spontaneous Coronary Artery Dissection of the OM1 #NSTEMI Type I #non-obstructive CAD #HTN #HLD: LDL of 134 on 01/02/2025 - Give 243mg Aspirin x 1 since she took some in the AM and later had an episode of emesis. Give an additional 30mg Lovenox for a total of 1.5mg/kg today. Started Hydralazine IVP w/ parameters. Start Atorvastatin 80mg daily. She is on Atorvastatin 20mg at home. Pain control w/ dilaudid IVP. Ordered 1L NS at 200cc/hr. Will give another 1L for a total of 2L. - CK wnl. UDS is positive for opiates, but this is expected, because she did get morphine in the ED. - Defer ordering of ECHO to Cardiology. - Cardiology consulted and following. continued on daily Aspirin, started on Aarvedilol, Atorvastatin, Plavix, and Imdur, and continued on continuing Losartan. #N/V - Antiemetics ordered. #Hypothyroidism - Continue home Levothyroxine. #Anxiety d/o - Patient states that she has tried Paxil, Celexa, and Cymbalta in the past but had side effects such as low libido. She felt that Buproprion helped take the edge off. - Resume Bupropion 12hr SR daily. - Consulted the psychiatrist on 01/07/2025 to further suggestions including medications, for management of her anxiety disorder. #RLS - She tells me that she used to take a Ropinirole, but the effect wore off. So, she smokes Cannabis to help her w/ her RLS. #Iron deficiency anemia: On oral iron. She does need an EGD/colonoscopy likely as outpatient. Ferritin of 33. Will discuss with the patient regarding this. DVT ppx: Full dose lovenox. PDMP PDMP Reviewed: Not Reviewed Attestations 2 Medical Necessity Statement*: The patient needs to be hospitalized for continuous blood pressure monitoring, to ensure that she is safe to be discharged. Other Coding Information Focused coding review requested Diagnoses Accelerated hypertension I10 Acute coronary syndrome I24.9 Non-ST elevated myocardial infarction I21.4 Hypothyroid E03.9 Hyperlipidemia LDL goal <70 E78.5
[2025-01-07] MEDS: buPROPion SR (12 HR) 150 mg Tablet PO (17:26)
[2025-01-07] MEDS: acetaminophen 325 mg Tablet 650 MG PO (19:40)
--- NOTE | 2025-01-07 21:28 | P.PN_ITS ---
Subjective 2 Subjective: Patient underwent left heart catheterization today noted to have left distal obtuse marginal 2 spontaneous coronary artery dissection since it was nonflow limiting and because of the fact it is small caliber distal segment of the vessel we decided to treated medically. Vitals/I&O/Wt Last Vital Signs Temp 98.5 F 01/07/25 20:26 Pulse 80 01/07/25 20:26 Resp 18 01/07/25 20:26 BP 110/66 01/07/25 20:26 Pulse Ox 93 01/07/25 20:26 O2 Del Method Room Air 01/07/25 20:26 01/07/25 01/07/25 01/07/25 06:59 14:59 22:59 Intake Total 1000 / 1120 616.05 / 616.05 240 / 856.05 Output Total 500 / 500 Balance 500 / 620 616.05 / 616.05 240 / 856.05 Weight last 48 hrs Weight 133 lb 12.8 oz Weight 135 lb Weight 132 lb Physical Exam 2 Const: COMMON NORMALS: alert OTHER: GENERAL: Patient is alert, awake and oriented x3. HEART: Regular S1 and S2. No murmur, rub or gallop. LUNGS: Clear to auscultate bilaterally. CENTRAL NERVOUS SYSTEM: Grossly nonfocal. EXTREMITIES: Lower extremities with out edema bilaterally. Resp: COMMON NORMALS: clear to auscultation bilaterally AUSCULTATION: clear to auscultation bilaterally Neuro: SENSORIUM/ORIENTATION: Yes alert Data 01/07/25 04:29 01/07/25 04:29 A&P Assessment and plan (1) Spontaneous dissection of coronary artery: (2) Non-ST elevated myocardial infarction: (3) Accelerated hypertension: (4) Chest pain: Plan Spontaneous coronary artery dissection was confirmed on left heart catheterization left leg ejection fraction remains to be normal and 60%. Since there is a small caliber distal vessel and it is not flow-limiting therefore we will continue to manage her medically. Plan: Meticulous control of blood pressure Start patient on high intensity statin Continue patient with beta-luis f Continue patient with dual antiplatelet therapy including aspirin and Plavix for at least 1 year Stop heparin Add isosorbide mononitrate Possible discharge tomorrow PDMP PDMP Reviewed: Not Reviewed Attestations 2 Medical Necessity Statement*: Patient require continuation hospitalization for above defined care Coding Level of Care Code Acute Code for Chg Fwd Diagnoses Spontaneous dissection of coronary artery I25.42 Non-ST elevated myocardial infarction I21.4 Accelerated hypertension I10 Chest pain, unspecified type R07.9 Chest pain type: unspecified
[2025-01-07] MEDS: temazepam 15 mg Capsule PO (21:57)
[2025-01-08] VITALS (32 sets, daily range): BP systolic 109–131; BP diastolic 65–85; PULSE 56–83; RESP 10–21; TEMP 36.3–37.2; O2SAT 75–98
[2025-01-08 05:26] LABS: Basophils # 0.1 10^3/uL (0.0-0.1); Basophils % 1.1 %; Eosinophils # 0.3 10^3/uL (0.0-0.8); Eosinophils % 5.2 %; Hematocrit 31.7 % (36-47); Lymphocytes # 1.9 10^3/uL (0.8-4.8); Lymphocytes % 28.3 %; Mean Corpuscular HGB Conc 29.7 g/dL (30-55); Mean Corpuscular Volume 87.8 fl (85-98); Mean Platelet Volume 8.8 fL (7.4-10.4); Monocytes # 0.5 10^3/uL (0.2-0.9); Monocytes % 6.9 %; Neutrophils # 3.81 10^3/uL (1.8-7.7); Neutrophils % 58.3 %; Nucleated Red Blood Cells % 0 %; Platelet Count 284 10^3/cmm (157-399); Red Blood Count 3.61 10^6/uL (3.85-5.65); Red Cell Distribution Width 15.4 % (12.1-15.1); White Blood Count 6.53 10^3/uL (3.29-11.43)
[2025-01-08 05:51] LABS: Alanine Aminotransferase 11 U/L (0-33); Albumin Level 3.5 g/dL (3.5-5.2); Alkaline Phosphatase 66 U/L (35-105); Aspartate Amino Transferase 37 U/L (0-32); Blood Urea Nitrogen 12 mg/dL (6-20); Calcium 8.6 mg/dL (8.5-10.5); Carbon Dioxide 23 mmol/L (22-29); Chloride 109 mmol/L (98-107); Creatinine Clr Calc Pharmacy 63.7311; Globulin 2.7 g/dL (1.3-4.6); Glomerular Filtration Rate 64.8 mL/min (90-130); Glucose 86 mg/dL (65-115); Osmolality Calculated 291 mOsm/kg (285-295); Phosphorus 3.6 mg/dL (2.5-4.5); Sodium 141 mmol/L (136-145); Total Bilirubin 0.3 mg/dL (0.15-1.2); Total Protein 6.2 g/dL (6.6-8.7)
--- NOTE | 2025-01-08 08:14 | W.PM.PSYCONS ---
Providers/Reason for Consult Consulting Physican/Specialty*: Priyanka/Psychiatry Reason for Consult*: depression/anxiety Attending Physician: Gloria Gooden MD Primary Care Provider: iQ Tamez Psych Consult HPI History of Present Illness Simin Donahue is a 54 year old female currently on the cardiac stabilization unit with coronary artery dissection who presented to the emergency department with complaints of chest pain. The patient had reported a history of depression and anxiety for the past 2 years. She reports that she chronically struggles with controlling her worry. She reports that she is extremely stressed financially as she has been awaiting a divorce from her now . She reports that she had stopped taking her Wellbutrin several months ago due to financial stressors. She had reported no suicidal thoughts. She does report that she has periods of chest pain but denied any clear history of panic symptoms. She denied any history of rodrigo or psychosis. She does report that she has trouble at times with controlling her worry but reports that it is often complicated by depressed mood. She continues to endorse having enjoyment in previously enjoyable activities and denies any anhedonia. She does report some difficulties with falling asleep. She does not endorse any feelings of hopelessness. She denies any stress induced headaches. The patient had endorsed previous trials on other antidepressants including Cymbalta and Paxil. She denies any change in appetite nor does she endorse any diurnal variation to her mood. The patient reports no changes in regards to her memory or concentration. Psychiatric history: She has no inpatient history of psychiatric hospitalizations. She reports a history of outpatient medication trials for depression as stated above including Wellbutrin, Cymbalta, and Paxil. She reports that she had received psychotherapy for a few months approximately 2 years ago. She has no history of suicidal ideation or suicide attempts. Substance abuse history: None reported Medical history: As stated Allergies: No known drug allergies Current psychiatric medications:wellbutrin sr 150mg daily, Temazepam 15mg at night. Family history: no psychiatric family history reported Legal history: none Social History: She was born in [place] and raised by her parents. She reports having supportive siblings. She reported no history of learning problems. She denied any history of sexual physical or emotional abuse. The patient had attended college and is currently from her and living on one of her properties that she owns. She has 2 adult children that live outside of the home. The patient reports that her mother lives in [facility] and her father lives in [place]. She had reported that she has been trying to obtain a divorce for the past 2 years unsuccessfully. Meds Home Medications and Allergies Home Medications ?Medication ?Instructions ?Recorded ?Confirmed ?Last Taken ?Type B-complex with vitamin C 1 cap PO DAILY 06/13/22 01/06/25 01/06/25 History bupropion HCl 150 mg tablet,12 hr 150 mg PO DAILY 06/13/22 01/06/25 01/06/25 History sustained-release (Wellbutrin SR) cholecalciferol (vitamin D3) 10 10 mcg PO DAILY 06/13/22 01/06/25 01/06/25 History mcg (400 unit) capsule melatonin 3 mg capsule 3 mg PO BEDTIME PRN Sleep 06/13/22 01/06/25 Unknown History amlodipine 5 mg tablet 5 mg PO DAILY PRN SBP more than 01/02/25 01/06/25 Unknown Rx 150 mmhg #10 tabs aspirin 81 mg tablet,delayed 81 mg PO DAILY 30 days #30 tabs 01/02/25 01/06/25 01/06/25 Rx release atorvastatin 40 mg tablet 20 mg (1/2 x 40 mg) PO BEDTIME 30 01/02/25 01/06/25 01/05/25 Rx days #30 tabs ferrous sulfate 325 mg (65 mg 325 mg PO DAILY #30 tabs 01/02/25 01/06/25 01/06/25 Rx iron) tablet,delayed release losartan 50 mg tablet 25 mg (1/2 x 50 mg) PO DAILY 30 01/02/25 01/06/25 01/06/25 Rx days #30 tabs metoprolol tartrate 25 mg tablet 25 mg PO BID@0900,2100 30 days #60 01/02/25 01/06/25 01/06/25 Rx tabs levothyroxine 100 mcg tablet 100 mcg PO QAM 01/06/25 01/06/25 01/06/25 History Allergies Allergy/AdvReac Type Severity Reaction Status Date / Time No Known Allergies Allergy Verified 01/06/25 09:53 Current Medications Current Medications Generic Name Dose Route Start Last Admin Trade Name Freq PRN Reason Stop Dose Admin Acetaminophen 650 mg 01/07/25 10:27 01/07/25 19:40 Acetaminophen 325 Mg Tablet PO 650 mg Q6H PRN Administration MILD PAIN Aspirin 81 mg 01/07/25 10:30 01/07/25 11:52 Aspirin 81 Mg Ec Tablet PO 81 mg DAILY GERALDO Administration Atorvastatin Calcium 80 mg 01/06/25 23:45 01/07/25 21:57 Atorvastatin 40 Mg Tablet PO 80 mg BEDTIME GERALDO Administration Carvedilol 3.125 mg 01/06/25 20:45 01/07/25 17:26 Carvedilol 3.125 Mg Tablet PO 3.125 mg BID GERALDO Administration Sodium Chloride 1,000 mls @ 100 mls/hr 01/07/25 10:30 01/08/25 06:51 Sodium Chloride 0.9% IV Not Given .Q10H GERALDO Isosorbide Mononitrate 30 mg 01/07/25 10:30 01/07/25 11:52 Isosorbide Mononitrate Er 30 Mg Tablet PO 30 mg DAILY GERALDO Administration Losartan Potassium 50 mg 01/06/25 20:45 01/07/25 08:49 Losartan 50 Mg Tablet PO 50 mg DAILY GERALDO Administration Senna 17.2 mg 01/06/25 21:00 01/07/25 20:53 Sennosides 8.6 Mg Tablet PO Not Given BEDTIME GERALDO Temazepam 15 mg 01/07/25 10:27 01/07/25 21:57 Temazepam 15 Mg Capsule PO 15 mg BEDTIME PRN Administration INSOMNIA PFSH NPU PFSH: Medical History (Updated 01/08/25 @ 08:30 by Hugh Mathew MD) No pertinent past medical history neghx: htn,dm,dvt/pe PCP: Qi Tamez Hypothyroid Surgical History Hx of lithotripsy (~2013) jennifer kidneys Family History Father Family history of thyroid problem Denies family history of Colon cancer Ovarian cancer Diabetes Heart disease Hyperlipidemia Breast cancer Hypertension Uterine cancer Stroke Social History (Updated 01/07/25 @ 00:05 by Bernadette Hines MD) Smoking and tobacco/nicotine status: never used tobacco/nicotine Alcohol intake: current Alcohol intake frequency: few times a month Substance/Drug Use: current Other substance/drug use details: smokes MJ for her restless leg syndrome. 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 There was no evidence of psychomotor agitation or psychomotor retardation. She did appear somewhat disinterested. Her mood was described as depressed. Her affect was restricted in range and mood congruent. Her thought process was linear, logical, and goal-directed. Her thought content revealed no suicidal or homicidal ideation. There was no evidence of delusional thinking. She did not appear to be responding to internal stimuli. There was no evidence of any obsessional thinking or any evidence of compulsive behavior. She was alert and oriented to person, place, time, and situation. Her recent and remote memory were grossly intact. Her intelligence was above average. Her insight was limited. Her judgment was fair. Her impulse control appeared adequate. Vitals/I&O/Wt Last Vital Signs Temp 97.8 F 01/08/25 00:00 Pulse 64 01/08/25 06:45 Resp 11 L 01/08/25 06:45 BP 113/65 01/08/25 06:45 Pulse Ox 75 L 01/08/25 06:30 O2 Del Method Room Air 01/08/25 00:00 01/07/25 01/08/25 01/08/25 22:59 06:59 14:59 Intake Total 290 / 906.05 1200 / 2106.05 Output Total 300 / 300 Balance 290 / 906.05 900 / 1806.05 Weight last 48 hrs Weight 62.55 kg Weight 60.691 kg Weight 61.235 kg Weight 59.874 kg Data NPU 01/08/25 04:52 01/08/25 04:52 A&P Assessment and plan (1) CHELA (generalized anxiety disorder): (2) MDD (major depressive disorder), recurrent episode, moderate: Plan 54-year-old white female who does show evidence of depression that appears to be primarily worsened by financial stressors with previous history of other episodes of depression and anxiety. She would likely benefit from psychotherapy although she is refusing this at this time. She was agreeable to considering Wellbutrin and a switch to a once a day form of Wellbutrin would be warranted. 1. Switch to Wellbutrin XL 150mg in am in place of wellbutin sr 150mg daily (shorter half life) 2. Cognitive behavioral therapy would be helpful 3. Consider Mindfullness/Mindful Meditation. PDMP PDMP Reviewed: Not Reviewed Attestations NPU Medical Necessity Statement*: Inpatient psychiatric stay not applicable. Coding Level of Care Code Acute Code for [facility] Fwd Diagnoses CHELA (generalized anxiety disorder) F41.1 MDD (major depressive disorder), recurrent episode, moderate F33.1
[2025-01-08] MEDS: losartan 50 mg Tablet PO (08:35)
[2025-01-08] MEDS: aspirin 81 mg EC Tablet PO (08:36)
[2025-01-08] MEDS: acetaminophen 325 mg Tablet 650 MG PO (08:36)
[2025-01-08] MEDS: carvedilol 3.125 mg Tablet PO (08:36)
[2025-01-08] MEDS: buPROPion XL (24 HR) 150 mg Tablet PO (08:36)
[2025-01-08] MEDS: isosorbide mononitrate ER 30 mg Tablet PO (08:36)
[2025-01-08] MEDS: clopidogrel 75 mg Tablet PO (08:36)
[2025-01-08] MEDS: HYDROcodone-acetaminophen 5-325 mg Tablet 1 TAB PO (12:21)
--- NOTE | 2025-01-08 12:40 | PM.DCS ---
Discharge Providers Date of Admission: 01/06/25 17:51 Date of Discharge: January 08, 2025 Attending Provider at Admission: Bernadette Hines MD Attending Provider at Discharge: Gloria Gooden MD Primary Care Provider: Qi Tamez Diagnoses at Discharge Discharge Diagnosis (1) CHELA (generalized anxiety disorder): Status: Acute (2) MDD (major depressive disorder), recurrent episode, moderate: Status: Acute Reason for Visit Reason for Visit: CP Hospital Course Hospital Course In summary, Ms Simin Donahue is a 54yo woman w/ Anxiety d/o, uncontrolled HTN that was diagnosed at age 18, cardiac cath on 01/02/2025 showing non-obstructive CAD, who presented for further evaluation of chest pain. In the ER, she was found to have elevated blood pressure up to 186/89. Her initial high-sensitivity troponin T was 29, but increased to 228.6 at the 6-hour sadi. Her initial EKG showed TWI in lead I and aVL, with ST changes concerning for early elevations in leads II, III, aVF, and V4-V6. Repeat EKG at the 6-hour sadi showed TWI in leads I, II, III, AVF, V4-V6. Given the EKG changes, cardiology was consulted from the ED, who recommended admission. Patient was evaluated by cardiology and had repeat cardiac catheterization which showed left distal obtuse marginal 2 spontaneous coronary artery dissection since it was nonflow limiting and because of the fact it is small caliber distal segment of the vessel , the decision was made for medical management. Patient will require meticulous control of blood pressure. She will continue beta-luis f switched to coreg, losartan 50mg , high intensity statin also aspirin and Plavix for at least 1 year. She was started on Imdur. She will follow with cardiology outpatient. Her Wellbutrin was switched to extended release by psychiatry. She will follow with her psychiatrist outpatient. Physical Exam Narrative: General -Awake, alert, no acute distress HEENT-normocephalic, atraumatic, neck is supple Lungs-clear to auscultation bilaterally, no wheezes or crackles CVS -S1-S2, regular rate and rhythm Abdomen -soft, nontender, normal bowel sounds Extremities-no pedal edema Neurology -no gross focal deficits Discharge Data Studies Completed and Pending Completed Studies During Hospitalization Category Date Time Status XR chest 1V portable [id number] Stat Exams 01/06/25 09:58 Completed Pending at discharge Category Date Time Status CARDIOVASCULAR RADIOLOGIC TECHNOLOGIST request for service Routine Exams 01/07/25 09:04 Taken Complete Blood Count w/Auto AM LABS Lab 01/09/25 04:00 Ordered Comprehensive Metabolic Panel AM LABS Lab 01/09/25 04:00 Ordered Magnesium AM LABS Lab 01/09/25 04:00 Ordered Phosphorus AM LABS Lab 01/09/25 04:00 Ordered Radiology Impressions Chest X-Ray 01/06/25 09:58 IMPRESSION: Stable chest without acute abnormality. Laboratory Results WBC 6.53 10^3/uL (3.29-11.43) 01/08/25 04:52 RBC 3.61 10^6/uL (3.85-5.65) L 01/08/25 04:52 Hgb 9.40 g/dL (11.27-16.99) L 01/08/25 04:52 Hct 31.7 % (36-47) L 01/08/25 04:52 MCV 87.8 fl (85-98) 01/08/25 04:52 MCH 26.0 pg (27-33) L 01/08/25 04:52 MCHC 29.7 g/dL (30-55) L 01/08/25 04:52 RDW 15.4 % (12.1-15.1) H 01/08/25 04:52 Plt Count 284 10^3/cmm (157-399) 01/08/25 04:52 MPV 8.8 fL (7.4-10.4) 01/08/25 04:52 Neut % (Auto) 58.3 % 01/08/25 04:52 Lymph % (Auto) 28.3 % 01/08/25 04:52 [place] % (Auto) 6.9 % 01/08/25 04:52 Eos % (Auto) 5.2 % 01/08/25 04:52 Baso % (Auto) 1.1 % 01/08/25 04:52 Neut # (Auto) 3.81 10^3/uL (1.8-7.7) 01/08/25 04:52 Lymph # (Auto) 1.9 10^3/uL (0.8-4.8) 01/08/25 04:52 [place] # (Auto) 0.5 10^3/uL (0.2-0.9) 01/08/25 04:52 Eos # (Auto) 0.3 10^3/uL (0.0-0.8) 01/08/25 04:52 Baso # (Auto) 0.1 10^3/uL (0.0-0.1) 01/08/25 04:52 Nucleated RBC % (auto) 0 % 01/08/25 04:52 Nucleated RBCs # 0.0 /100WBC 01/08/25 04:52 APTT 152.2 SECONDS (23.9-36.7) H* 01/07/25 08:50 D-Dimer 0.49 ug/mLFEU (0-0.59) 01/06/25 10:08 Sodium 141 mmol/L (136-145) 01/08/25 04:52 Potassium 4.0 mmol/L (3.5-5.1) 01/08/25 04:52 Chloride 109 mmol/L (98-107) H 01/08/25 04:52 Carbon Dioxide 23 mmol/L (22-29) 01/08/25 04:52 Anion Gap 13.0 (5-19) 01/08/25 04:52 BUN 12 mg/dL (6-20) 01/08/25 04:52 Creatinine 0.9 mg/dL (0.5-0.9) 01/08/25 04:52 GFR Calculation 64.8 mL/min (90-130) L 01/08/25 04:52 Glucose 86 mg/dL (65-115) 01/08/25 04:52 Calculated Osmolality 291 mOsm/kg (285-295) 01/08/25 04:52 Calcium 8.6 mg/dL (8.5-10.5) 01/08/25 04:52 Phosphorus 3.6 mg/dL (2.5-4.5) 01/08/25 04:52 Magnesium 2.0 mg/dL (1.7-2.3) 01/08/25 04:52 Ferritin 33 ng/mL (15-150) 01/06/25 10:08 Total Bilirubin 0.3 mg/dL (0.15-1.2) 01/08/25 04:52 AST 37 U/L (0-32) H 01/08/25 04:52 ALT 11 U/L (0-33) 01/08/25 04:52 Alkaline Phosphatase 66 U/L (35-105) 01/08/25 04:52 Creatine Kinase 62 U/L (26-192) 01/06/25 10:08 Troponin T 5th Gen ng/L 1422 ng/L (0-10) H* 01/07/25 08:50 Troponin T Baseline 29 ng/L (0-10) H 01/06/25 10:08 Troponin T 120 Minute 54.07 ng/L (0-10) H 01/06/25 11:56 Delta Troponin T 25.07 ABS# (0-10) H* 01/06/25 11:56 Troponin T Hi Sens 6Hr 228.6 ng/L (0-10) H 01/06/25 16:09 Troponin T Hi Sens 6Hr Delta 199.6 ng/L (0-12) H* 01/06/25 16:09 NT-Pro-B Natriuret Pep 150 pg/mL (0-125) H 01/06/25 10:08 Total Protein 6.2 g/dL (6.6-8.7) L 01/08/25 04:52 Albumin 3.5 g/dL (3.5-5.2) 01/08/25 04:52 Globulin 2.7 g/dL (1.3-4.6) 01/08/25 04:52 Lipase 51 U/L (13-60) 01/06/25 10:08 25-OH Vitamin D Total 92 ng/mL (30-100) 01/06/25 10:08 Urine Color Yellow (Yellow) 01/06/25 21:35 Urine Appearance Clear (CLEAR) 01/06/25 21:35 Urine pH 6.0 (5-7) 01/06/25 21:35 Ur Specific [place] 1.011 (1.005-1.030) 01/06/25 21:35 Urine Protein Negative (Negative) 01/06/25 21:35 Urine Glucose (UA) Negative (Normal) 01/06/25 21:35 Urine Ketones Negative (Negative) 01/06/25 21:35 Urine Blood 1+ (Negative) A 01/06/25 21:35 Urine Nitrate Negative (Negative) 01/06/25 21:35 Urine Bilirubin Negative (Negative) 01/06/25 21:35 Urine Urobilinogen 0.2 mg/dL (Negative) 01/06/25 21:35 Ur Leukocyte Esterase Negative (Negative) 01/06/25 21:35 Urine RBC 0-2 /hpf (0-2) 01/06/25 21:35 Urine WBC 0-5 /hpf (0-5) 01/06/25 21:35 Ur Squamous Epith Cells 0-5 /hpf (0-5) 01/06/25 21:35 Amorphous Sediment Not Reportable 01/06/25 21:35 Urine Bacteria None seen /hpf (NONE) 01/06/25 21:35 Hyaline Casts 0-4 /lpf H 01/06/25 21:35 Urine Opiates Screen Positive ng/mL (Negative) H 01/06/25 21:35 Ur Barbiturates Screen Negative ng/mL (Negative) 01/06/25 21:35 Ur Phencyclidine Scrn Negative ng/mL (Negative) 01/06/25 21:35 Ur Amphetamines Screen Negative ng/mL (Negative) 01/06/25 21:35 U Benzodiazepines Scrn Negative ng/mL (Negative) 01/06/25 21:35 Urine Cocaine Screen Negative ng/mL (Negative) 01/06/25 21:35 U Marijuana (THC) Screen Negative ng/mL (Negative) 01/06/25 21:35 Vitals Last Vital Signs Temp 97.4 F L 01/08/25 12:00 Pulse 73 01/08/25 12:00 Resp 20 H 01/08/25 12:00 BP 123/80 01/08/25 12:00 Pulse Ox 97 01/08/25 12:00 O2 Del Method Room Air 01/08/25 12:00 Discharge Plan Discharge Patient Disposition: Home Condition: Stable Prescriptions: New losartan 50 mg Tablet 50 mg PO DAILY 365 Days Qty: 30 0RF atorvastatin 40 mg Tablet 80 mg PO BEDTIME 365 Days Qty: 30 1RF clopidogrel 75 mg Tablet 75 mg PO DAILY 365 Days Qty: 30 11RF carvedilol 3.125 mg Tablet 3.125 mg PO BID 365 Days Qty: 30 1RF isosorbide mononitrate 30 mg Tablet Extended Release 24 Hr 30 mg PO DAILY 365 Days Qty: 30 0RF bupropion HCl 150 mg Tablet Extended Release 24 Hr 150 mg PO DAILY 30 Days Qty: 30 0RF Continued cholecalciferol (vitamin D3) 10 mcg (400 unit) capsule 10 mcg PO DAILY B-complex with vitamin C Capsule 1 cap PO DAILY melatonin 3 mg capsule 3 mg PO BEDTIME PRN (Reason: Sleep) aspirin 81 mg Tablet,Delayed Release (Dr/Ec) 81 mg PO DAILY 30 Days Qty: 30 0RF ferrous sulfate 325 mg (65 mg iron) Tablet,Delayed Release (Dr/Ec) 325 mg PO DAILY Qty: 30 0RF amlodipine 5 mg tablet 5 mg PO DAILY PRN (Reason: SBP more than 150 mmhg) Qty: 10 0RF levothyroxine 100 mcg tablet 100 mcg PO QAM Discontinued bupropion HCl [Wellbutrin SR] 150 mg tablet sustained-release 12 hr 150 mg PO DAILY losartan 50 mg Tablet 25 mg PO DAILY 30 Days Qty: 30 0RF atorvastatin 40 mg Tablet 20 mg PO BEDTIME 30 Days Qty: 30 0RF metoprolol tartrate 25 mg Tablet 25 mg PO BID@0900,2100 30 Days Qty: 60 0RF Discharge Orders: Discharge Order (Routine); Ordered 01/08/25 Ordered By: Gloria Gooden Referrals: Nelia Walters NP [Nurse Practitioner, Cardiology] - 01/20/25 2:30 pm Qi Tamez PA [Primary Care Provider, [employer]] - 01/16/25 9:20 am Discharge Diet: Cardiac Discharge Activity: Increase activity as tolerated Patient Instructions: Chest Pain (DC), Hypothyroidism (DC), Acute Coronary Syndrome (DC), Chronic Hypertension (DC), Opioid Safety, Post Angiogram Home Care Instructions Activity Restrictions/Additional Instructions: Continue aspirin and Plavix Discharge Attestations Time Spent in Discharge Care*: greater than 30 min Status at Discharge: Cognitive status at discharge: cognitively intact, Behavioral status at discharge: cooperative, Quality Metrics Clinical Quality Measures [ No reported AMI, CVA or VTE this stay] Coding Level of Care Code Acute Code for [facility] Diagnoses CHELA (generalized anxiety disorder) F41.1 MDD (major depressive disorder), recurrent episode, moderate F33.1
--- NOTE | 2025-01-08 14:00 | P.PN_ITS ---
<Statement entered by Roldan Mansfield MD - 01/09/25 22:34> Patient was evaluated and cared for in conjunction with an advanced practice practitioner. I personally examined the patient and reviewed the chart and all pertinent data including imaging, telemetry, and laboratory results. I discussed the patient in detail with the advanced practice practitioner. Please see their note for complete H&P testing result and agreed upon plan of care for the patient. Subjective 2 Subjective: Patient doing well without any chest pain or shortness of breath. Blood pressure stable at 113/65. Has a slight headache but otherwise doing well. Vitals/I&O/Wt Last Vital Signs Temp 97.4 F L 01/08/25 13:46 Pulse 71 01/08/25 13:46 Resp 18 01/08/25 13:46 BP 123/80 01/08/25 13:46 Pulse Ox 97 01/08/25 13:46 O2 Del Method Room Air 01/08/25 12:00 01/07/25 01/08/25 01/08/25 22:59 06:59 14:59 Intake Total 290 / 906.05 1200 / 2106.05 360 / 360 Output Total 300 / 300 Balance 290 / 906.05 900 / 1806.05 360 / 360 Weight last 48 hrs Weight 137 lb 14.4 oz Weight 133 lb 12.8 oz Weight 135 lb Physical Exam 2 Narrative: General: No apparent distress, healthy appearing, well nourished HENMT: normoceophalic Muskuloskeletal: Full ROM Lymphatic: no lymphedema noted Respiratory: Normal respiratory effort, clear to auscultation bilaterally throughout all lung moore, no use of accessory muscles Cardio: No JVD, regular rate, regular rhythm, S1 S2 normal, no murmurs, peripheral pulses 2+ radial palpated bilaterally Extremities: Full ROM, normal, normal capillary refill, no cyanosis or edema Neuro: Alert and oriented x4, no focal motor deficits Psych: Affect normal, denies suicidal ideation, mental status grossly normal Skin: No rashes or lesions noted, no wounds Data 01/08/25 04:52 01/08/25 04:52 A&P Assessment and plan (1) Non-ST elevated myocardial infarction: (2) Accelerated hypertension: (3) Chest pain: Plan At this time patient doing well. Blood pressure well-controlled. Patient to continue losartan 50 mg, isosorbide 30, Coreg 3.125 twice daily. If she continues headache she was instructed to half the isosorbide and if it continues after a day or 2 discontinue completely. She will follow-up with us in 1 week. PDMP PDMP Reviewed: Not Reviewed Attestations 2 Medical Necessity Statement*: Deferred to primary. Coding Level of Care Code Acute Code for [facility] Diagnoses Non-ST elevated myocardial infarction I21.4 Accelerated hypertension I10 Chest pain, unspecified type R07.9 Chest pain type: unspecified
== END 2025-01-08 13:20 | disposition home or self-care (01) | DRG 280 ==
LOC: ER 13:38 → ER IP 14:17 → CSU 14:49
PROVIDERS: Internal Medicine Cardiovascular Disease; Admitting Provider Internal Medicine; Emergency Provider Emergency Medicine; PCP Physician Assistant; Visit Provider Student in an Organized Health Care Education/Training Program
PROC: 4A023N7 Measurement of Cardiac Sampling and Pressure, Left Heart, Percutaneous Approach (ICD-10-PCS; principal; 2025-01-07 08:30)
DX: I21.4 Non-ST elevation (NSTEMI) myocardial infarction (principal); I25.42 Coronary artery dissection; E03.9 Hypothyroidism, unspecified; I10 Essential (primary) hypertension; E78.5 Hyperlipidemia, unspecified; F41.9 Anxiety disorder, unspecified; G25.81 Restless legs syndrome; D50.9 Iron deficiency anemia, unspecified
CPT/HCPCS: 36415; 71045; 80053; 80306; 81001; 82306; 82550; 82728; 83690; 83735; 83880; 84100; 84484; 85025; 85347; 85378; 85730; 93005; 93458; 96372; 96374; 96375; 96376; 99152; 99153; 99285; A9270; C1769; C1887; C1894; G0378; J1644; J1650; J2060; J2250; J2270; J2405; J3010; J3490; J7030; J9999; Q0163; Q9967

== ENCOUNTER 2025-07-07 09:53 | Outpatient (CLI) | payer MEDICAID, SELFPAY ==
--- NOTE | 2025-07-07 09:59 | MM_ITS ---
WS: [id number] BILATERAL 3D TOMOSYNTHESIS DIGITAL SCREENING MAMMOGRAM WITH CAD CLINICAL INFORMATION: SCREENING HISTORY: Screening mammogram. No current complaints. COMPARISON: 2023 TECHNIQUE: Bilateral CC and MLO. FINDINGS: The breast are composed of extremely dense tissue, which can limit the detection of small underlying mass lesions. No suspicious focal mass, asymmetry, calcifications, or architectural distortion. No evidence of malignancy. A few incidental punctate calcifications. MM/MM scr tomosynthesis [id number] IMPRESSION: DENSITY: The breasts are heterogeneously dense, which may obscure small masses. BI-RADS: 2 - Benign FOLLOW UP: 1 Year Follow-up Recommend return to annual screening mammography.
== END 2025-07-07 09:54 | disposition home or self-care (01) ==
LOC: RAD 09:54
PROVIDERS: PCP Physician Assistant; Visit Provider Physician Assistant
DX: Z12.31 Encounter for screening mammogram for malignant neoplasm of breast (principal); R92.343 Mammographic extreme density, bilateral breasts; R92.1 Mammographic calcification found on diagnostic imaging of breast
CPT/HCPCS: 77063; 77067